=== PATIENT | male | born 1980 | race Caucasian/White ===

== ENCOUNTER → 2017-07-07 | Outpatient (CLI) | payer OTHER ==
[2017-07-07 17:19] LABS: ALBUMIN 4.4 GM/DL (3.2-5.2); ALBUMIN/GLOBULIN RATIO 1.33 (1.00-1.93); ALKALINE PHOSPHATASE 99 U/L (45-117); ALT/SGPT 52 U/L (12-78); ANION GAP 6 MEQ/L (8-16); AST/SGOT 33 U/L (7-37); BILIRUBIN,TOTAL 0.7 MG/DL (0.2-1.0); BLOOD UREA NITROGEN 8 MG/DL (7-18); CALCIUM LEVEL 9.4 MG/DL (8.5-10.1); CARBON DIOXIDE LEVEL 30 MEQ/L (21-32); CHLORIDE LEVEL 103 MEQ/L (98-107); CHOLESTEROL LEVEL 148 MG/DL (<200); CHOLESTEROL RISK RATIO 3.523 (<5); CREATININE FOR GFR 0.86 MG/DL (0.70-1.30); GLOMERULAR FILTRATION RATE > 60.0 (>60); GLUCOSE, FASTING 100 MG/DL (70-105); HDL CHOLESTEROL 42 MG/DL (>40); NON-HDL-C 106 MG/DL; POTASSIUM SERUM 4.1 MEQ/L (3.5-5.1); SODIUM LEVEL 139 MEQ/L (136-145); TOTAL PROTEIN 7.7 GM/DL (6.4-8.2); TRIGLYCERIDES LEVEL 75 MG/DL (<150)
[2017-07-07 17:58] LABS: TESTOSTERONE 644 NG/DL (241-827)
[2017-07-08 12:09] LABS: HIV 1&2 SCREEN CENTAUR NEGATIVE (NEGATIVE)
== END ==
LOC: M WUC 15:07
DX: Z00.01 Encounter for general adult medical examination with abnormal findings (principal); F11.20 Opioid dependence, uncomplicated
CPT/HCPCS: 84403

== ENCOUNTER 2021-02-05 21:04 | Inpatient (IN) | payer MEDICAID, OTHER ==
[~2021-02-05] VITALS: Ht 175.3 cm; Wt 64.0 kg
[~2021-02-05 21:04] MED LIST: NALT50TA4 PO; OLAN1TAB20 PO
[2021-02-05] MEDS ORDERED: SUBO8MIS SL (21:48)
[2021-02-05] MEDS ORDERED: ADDE20TA PO (21:48)
[2021-02-05] MEDS ORDERED: HOME MED LIST COMPLETE! XX SCH (21:50)
[2021-02-05 21:54] LABS: HEMATOCRIT 44.4 % (42.0-52.0); HEMOGLOBIN 14.2 g/dl (13.5-17.5); MEAN CORPUSCULAR HEMOGLOBIN 28.7 pg (27.0-33.0); MEAN CORPUSCULAR VOLUME 89.7 fl (80.0-96.0); PLATELET COUNT, AUTOMATED 281 10^3/uL (150-450); RED BLOOD COUNT 4.95 10^6/uL (4.30-6.10); WHITE BLOOD COUNT 8.5 10^3/uL (4.0-10.0)
[2021-02-05 22:18] LABS: AMPHETAMINES LEVEL URINE POSITIVE (NEGATIVE); BARBITURATES URINE NEGATIVE (NEGATIVE); BENZODIAZEPINES URINE NEGATIVE (NEGATIVE); CANNABINOIDS URINE NEGATIVE (NEGATIVE); COCAINE METABOLITE URINE NEGATIVE (NEGATIVE); METHADONE URINE NEGATIVE (NEGATIVE); OPIATES URINE NEGATIVE (NEGATIVE); PHENCYCLIDINE URINE NEGATIVE (NEGATIVE)
[2021-02-05 22:28] LABS: ACETAMINOPHEN LEVEL < 2.0 UG/ML (10.0-30.0); ALBUMIN 3.7 GM/DL (3.2-5.2); ALT/SGPT 30 U/L (12-78); BILIRUBIN,DIRECT 0.4 MG/DL (0.0-0.2); BILIRUBIN,TOTAL 1.3 MG/DL (0.2-1.0); BLOOD UREA NITROGEN 24 MG/DL (7-18); CALCIUM LEVEL 8.8 MG/DL (8.5-10.1); CARBON DIOXIDE LEVEL 27 MEQ/L (21-32); CHLORIDE LEVEL 105 MEQ/L (98-107); CREATININE FOR GFR 0.87 MG/DL (0.70-1.30); ETHYL ALCOHOL (ETHANOL) < 0.003 % (0.000-0.010); GLOMERULAR FILTRATION RATE > 60.0 (>60); GLUCOSE, FASTING 82 MG/DL (70-100); POTASSIUM SERUM 4.2 MEQ/L (3.5-5.1); SALICYLATE LEVEL < 1.7 MG/DL (5.0-30.0); SODIUM LEVEL 139 MEQ/L (136-145); THYROID STIMULATING HORMONE 0.323 uIU/ML (0.358-3.740)
--- NOTE | 2021-02-06 02:22 | REPVR ---
PROCEDURE INFORMATION: Exam: CT Head Without Contrast Exam date and time: 02/06/2021 1:25 AM Age: 41 years old Clinical indication: Injury or trauma; Fall; Concussion/head injury TECHNIQUE: Imaging protocol: Computed tomography of the head without contrast. Radiation optimization: All CT scans at this facility use at least one of these dose optimization techniques: automated exposure control; mA and/or kV adjustment per patient size (includes targeted exams where dose is matched to clinical indication); or iterative reconstruction. COMPARISON: CT Head without contrast 01/15/2016 10:19 AM FINDINGS: Brain: Unremarkable. No hemorrhage or acute infarction. Unremarkable white matter. No midline shift or mass effect. Cerebral ventricles: No ventriculomegaly. Paranasal sinuses: Mucosal thickening in the right maxillary sinus. Remaining sinuses are clear. Mastoid air cells: Mastoid air cells are clear. Bones/joints: Unremarkable. No acute fracture. Soft tissues: Unremarkable. IMPRESSION: No acute intracranial abnormality. Electronically signed by: Sanford Acosta On 02/06/2021 02:21:43 AM
[2021-02-06] MEDS ORDERED: ADDERALL 5 MG TAB PO ONE (08:35)
[2021-02-06] MEDS ORDERED: BUPRENORPHINE/NALOXONE 8-2MG SUBLINGUAL TABLET(SUBOXONE) SL ONE (08:35)
[2021-02-06 09:18] LABS: RSV AMPLIFICATION NEGATIVE (NEGATIVE)
[2021-02-06] MEDS ORDERED: traZODone 50 MG TAB PO PRN (10:35)
[2021-02-06] MEDS ORDERED: ACETAMINOPHEN TAB 650MG DOSE (2X325MG) PO PRN (10:35)
[2021-02-06] MEDS ORDERED: LORazepam 1 MG TAB PO PRN (10:35)
[2021-02-06] MEDS ORDERED: MOM 30ML SUSPENSION UDC PO PRN (10:35)
[2021-02-06] MEDS ORDERED: MAALOX 30 ML SUSP *UDC PO PRN (10:35)
[2021-02-06] MEDS: NICOTINE 21MG/24HR 1 EA TRANSDERMAL TD SCH (15:41)
[2021-02-06 16:30] VITALS: BP 140/84
[2021-02-07 06:45] VITALS: BP 178/110
[2021-02-07] MEDS: NICOTINE 21MG/24HR 1 EA TRANSDERMAL TD SCH (08:14)
[2021-02-07] MEDS ORDERED: BUPRENORPHINE/NALOXONE 8-2MG SUBLINGUAL TABLET(SUBOXONE) SL SCH (09:00)
[2021-02-07] MEDS: BUPRENORPHINE/NALOXONE 8-2MG SUBLINGUAL TABLET(SUBOXONE) SL SCH (09:18)
[2021-02-07] MEDS ORDERED: hydrOXYzine 50 MG TAB PO PRN (10:35)
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
[2021-02-07] MEDS: QUEtiapine FUMARATE 25 MG TAB PO SCH ×2 (11:15→16:17)
[2021-02-07] MEDS: POLYTRIM OPTH DROPS 10ML OS SCH ×4 (12:12→21:30)
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
[2021-02-07] MEDS: SODIUM CHLORIDE NASAL 0.65% SPRAY BTL (OCEAN) SCH ×2 (16:17→21:30)
[2021-02-07 16:47] VITALS: BP 140/88
[2021-02-07] MEDS: QUEtiapine FUMARATE 100 MG TAB PO SCH (21:30)
[2021-02-08] MEDS: POLYTRIM OPTH DROPS 10ML OS SCH ×6 (05:25→21:29)
[2021-02-08 05:36] VITALS: BP 144/74
[2021-02-08] MEDS: SODIUM CHLORIDE NASAL 0.65% SPRAY BTL (OCEAN) SCH ×3 (08:58→21:29)
[2021-02-08] MEDS: QUEtiapine FUMARATE 25 MG TAB PO SCH ×2 (08:58→16:09)
[2021-02-08] MEDS: NICOTINE 21MG/24HR 1 EA TRANSDERMAL TD SCH (08:59)
[2021-02-08] MEDS: BUPRENORPHINE/NALOXONE 8-2MG SUBLINGUAL TABLET(SUBOXONE) SL SCH (09:39)
--- NOTE | 2021-02-08 10:08 | MHIPNPDOC ---
[facility] Progress Note Progress Note DATE OF SERVICE: 02/08/21 The patient is cooperated with the medications including Seroquel and reports that he is feeling not as anxious and slept good. He stated that he knows what he needs to do and would like to get discharged so he can go back to [place] to his girlfriend. He denies any recent relapse and his admission tox screen is positive for amphetamine but patient claims that he has been getting Adderall from his medical doctor and apparently was prescribed. He is in good control and not showing any med seeking behavior and not demanding and in no acute distress and strongly denies any suicidal thoughts HISTORY:. VITAL SIGNS: See below. NEW TEST RESULTS:. CURRENT MEDICATIONS: See below. MENTAL STATUS EXAMINATION: Patient is a 41-year old male, who is in no acute distress. Speech: Is rational. Language skills are fair. Thought processes including: Coherent. Thought content: Denies any suicidal thoughts. Abstract reasoning, and computation:. Description of associations: Organized. Description of abnormal or psychotic thoughts: Denies any psychotic symptoms. Judgment: Fair. Insight: [ fair.. Orientation: Oriented. Recent and remote memory: No acute distress. Attention span and concentration: Fair]. Language:. Fund of knowledge:. Mood: Denies any serious depression. Affect: Slightly blunted but appropriate. DIAGNOSES: 1.. Adjustment disorder 2.. 3.. ASSESSMENT: Patient is not psychotic is maintaining good control and denies any suicidal thoughts MANAGEMENT PLAN: Supportive therapy and plan to discharge him tomorrow so he can go back to [place]. TIME SPENT: 15 minutes. Vital Signs Vital Signs Date Time Temp Pulse Resp B/P (MAP) Pulse Ox O2 Delivery O2 Flow Rate FiO2 02/08/21 05:36 97.7 67 18 144/74 (97) 99 Room Air Current Medications Current Medications Medications (Trade) Dose Ordered Sig/Krystian Route PRN Reason Start Time Stop Time Status Last Admin Dose Admin Acetaminophen (Tylenol Tab) 650 mg Q6HP PRN PO HEADACHE or MILD DISCOMFORT 02/06/21 10:35 02/07/21 06:10 Al Hydrox/Mg Hydrox/Simethicone (Mylanta) 30 ml Q4HP PRN PO HEARTBURN/INDIGESTION 02/06/21 10:35 Buprenorphine/ Naloxone (Suboxone 8/2mg) 1 tab DAILY SL 02/07/21 09:00 02/07/21 06:22 DC Buprenorphine/ Naloxone (Suboxone 8/2mg) 2 tab DAILY SL 02/07/21 09:00 02/07/21 09:18 Home Med (Home Med List Complete!) ASDIRECTED XX 02/05/21 21:50 02/05/21 21:50 DC Hydroxyzine HCl (Atarax) 50 mg Q6HP PRN PO anxiety 02/07/21 10:35 Lorazepam (Ativan) 1 mg Q6HP PRN PO ANXIETY/AGITATION 02/06/21 10:35 02/07/21 10:36 DC 02/07/21 06:09 Magnesium Hydroxide (Milk Of Magnesia) 30 ml DAILYPRN PRN PO CONSTIPATION 02/06/21 10:35 Nicotine (Nicoderm Cq 21mg) 1 patch DAILY TD 02/06/21 09:00 02/08/21 08:59 Polymyxin/ Trimethoprim Sulfate (Polytrim Ophth Drops) 1 drop 6XD OS 02/07/21 12:00 02/08/21 08:58 Quetiapine Fumarate (SEROquel) 25 mg BID@0900,1600 PO 02/07/21 09:00 02/08/21 08:58 Quetiapine Fumarate (SEROquel) 100 mg QHS PO 02/07/21 21:00 02/07/21 21:30 Sodium Chloride ([place] Nasal [place]) 2 spray TID NA 02/07/21 16:00 02/08/21 08:58 Trazodone HCl (Desyrel) 50 mg QHSP PRN PO INSOMNIA 02/06/21 10:35 Allergies Coded Allergies: Penicillins (Verified Allergy, Unknown, 02/05/21) NIMESH PETTIT M.D. Feb 08, 2021 10:08
[2021-02-08 16:34] VITALS: BP 145/94
[2021-02-08] MEDS: QUEtiapine FUMARATE 100 MG TAB PO SCH (21:29)
[2021-02-09] MEDS: POLYTRIM OPTH DROPS 10ML OS SCH ×3 (06:07→12:11)
[2021-02-09 07:39] VITALS: BP 127/90
[2021-02-09] MEDS ORDERED: QUET1TAB17 PO (08:23)
[2021-02-09] MEDS ORDERED: QUET100T2 PO (08:23)
[2021-02-09] MEDS: BUPRENORPHINE/NALOXONE 8-2MG SUBLINGUAL TABLET(SUBOXONE) SL SCH (09:17)
[2021-02-09] MEDS: NICOTINE 21MG/24HR 1 EA TRANSDERMAL TD SCH (09:17)
[2021-02-09] MEDS: QUEtiapine FUMARATE 25 MG TAB PO SCH (09:17)
[2021-02-09] MEDS: SODIUM CHLORIDE NASAL 0.65% SPRAY BTL (OCEAN) SCH (09:17)
--- NOTE | 2021-02-09 11:02 | MHDSPDOC ---
[facility] Discharge Summary Discharge Summary DATE OF ADMISSION: Feb 06, 2021 at 10:32 DATE OF DISCHARGE: February 09, 2021 DISCHARGE DIAGNOSES: 1.. Adjustment disorder with mixed emotion 2.. Polysubstance abuse REASON FOR ADMISSION: 41-year-old man with long history of polysubstance abuse admitted due to report of depression and vague suicidal thoughts. Patient apparently is living with a girlfriend in [facility] and came to [place] to see his doctor for his Suboxone prescription. For some unclear reason he was on the street reported suicidal thoughts and brought to emergency room and admitted. CONSULTANTS INVOLVED: TREATMENT AND PROGRESS ON THE UNIT : The patient was maintained on his Suboxone 2 strips a day and he was given Seroquel 25 mg twice a day and 100 mg at bedtime to help with his anxiety and sleep. Patient claims he was taking Adderall but since it has a significant abuse potential he was not restarted on that. He maintained good control denies any active suicidal thoughts and denies any hallucination or paranoia and does not show any active lethality. He is in good control and in no acute distress and asking for discharge and does not appear to be in need of any acute inpatient treatment and will be discharged per his request.. HOSPITAL COURSE: He remained in good control and did not show any bizarre aggressive or suicidal behavior. He did not show any psychotic symptoms did not have any physical complaint and in no acute physical distress and his asking to be discharged and is going to continue his treatment with his Suboxone provider. DISCHARGE ASSESSMENT: Stable not psychotic and not suicidal MENTAL STATUS EXAMINATION ON DISCHARGE: Patient is a 41-year old male, who is in no acute distress. Speech is relevant. Language skills are fair. Thought processes including: Rational. Thought content: No suicidal thoughts. Abstract reasoning, and computation:. Description of associations: Organized. Description of abnormal or psychotic thoughts: Denies any. Judgment: Fair. Insight: Fair. Orientation to oriented. Recent and remote memory: No gross impairment. Attention span and concentration:. Language:. Fund of knowledge:. Mood: Moderately anxious but denies any serious depression. Affect: Appropriate. MEDICATIONS ON DISCHARGE: -For. Seroquel 25 mg twice daily and 100 mg at bedtime for 7 days -For. -For. PLAN/FOLLOWUP ARRANGEMENTS: Continue his Suboxone provider. The amount of time spent in the coordination of care for this patient was approximately 30 minutes. ETOH/Disorder Med Rx ETOH/DRUG DISORDER RX: N/A Vital Signs/I&Os Vital Signs Date Time Temp Pulse Resp B/P (MAP) Pulse Ox O2 Delivery O2 Flow Rate FiO2 02/09/21 07:39 97.9 81 18 127/90 (102) 98 Room Air Medications Scheduled Buprenorphine HCl/Naloxone HCl (Suboxone 8 mg-2 mg Sl Film) 1 Each Film, 2 STRIP SL DAILY, (Reported) Dextroamphetamine/Amphetamine (Adderall 20 mg Tablet) 20 Mg Tablet, 20 MG PO BID, (Reported) Quetiapine Fumarate (Quetiapine Fumarate) 25 Mg Tablet, 25 MG PO BID@0900,1600 for mood for 7 Days, #14 Quetiapine Fumarate (Quetiapine Fumarate) 100 Mg Tablet, 100 MG PO QHS for mood for 7 Days, #7 Allergies Coded Allergies: Penicillins (Verified Allergy, Unknown, 02/05/21) NIMESH PETTIT M.D. Feb 09, 2021 11:02
== END 2021-02-09 12:20 | disposition home or self-care (01) | DRG 755 ==
LOC: M ED 21:04 → M ED INP 02-06 10:32 → M PSY 02-06 11:26
PROVIDERS: ADMIT Psychiatry & Neurology Psychiatry; ATTEND Psychiatry & Neurology Psychiatry
DX: F43.23 Adjustment disorder with mixed anxiety and depressed mood (principal); F11.10 Opioid abuse, uncomplicated; F17.210 Nicotine dependence, cigarettes, uncomplicated; H10.9 Unspecified conjunctivitis; Z88.0 Allergy status to penicillin; Z79.899 Other long term (current) drug therapy

== ENCOUNTER 2021-02-21 01:34 | Inpatient (IN) | payer MEDICAID, OTHER ==
[~2021-02-21] VITALS: Ht 175.3 cm; Wt 63.1 kg
[~2021-02-21 01:34] MED LIST changes: +ADDE20TA PO; +QUET100T2 PO; +QUET1TAB17 PO; +SUBO8MIS SL
[2021-02-21 04:26] LABS: RSV AMPLIFICATION NEGATIVE (NEGATIVE)
[2021-02-21] MEDS ORDERED: ACETAMINOPHEN TAB 650MG DOSE (2X325MG) PO ONE (07:20)
[2021-02-21] MEDS ORDERED: ADDERALL 5 MG TAB PO ONE (07:25)
[2021-02-21] MEDS ORDERED: QUEtiapine FUMARATE 25 MG TAB PO ONE (07:25)
[2021-02-21 08:02] LABS: APPEARANCE, URINE CLEAR (CLEAR); BACTERIA, URINE AUTO NEGATIVE (NEGATIVE); BILIRUBIN, URINE AUTO NEGATIVE (NEGATIVE); BLOOD, URINE BLOOD NEGATIVE (NEGATIVE); COLOR, URINE YELLOW (YELLOW); GLUCOSE, URINE (UA) AUTO NEGATIVE (NEGATIVE); KETONE, URINE AUTO NEGATIVE (NEGATIVE); LEUKOCYTE ESTERASE, URINE AUTO NEGATIVE (NEGATIVE); MUCUS, URINE SMALL (NEGATIVE); NITRITE, URINE AUTO NEGATIVE (NEGATIVE); PROTEIN, URINE AUTO NEGATIVE (NEGATIVE); RBC, URINE AUTO 1 /HPF (0-3); SPECIFIC GRAVITY URINE AUTO 1.025 (1.002-1.035); SQUAMOUS EPITHELIAL CELL UR AU 0 /HPF (0-6); WBC, URINE AUTO 1 /HPF (0-3)
[2021-02-21 08:09] LABS: BASO # 0.1 10^3/uL (0.0-0.2); BASO % 0.9 % (0.0-1.0); EOS # 0.2 10^3/uL (0.0-0.5); EOS % 2.4 % (0.0-3.0); HEMATOCRIT 48.1 % (42.0-52.0); HEMOGLOBIN 15.9 g/dl (13.5-17.5); LYMPH # 2.4 10^3/uL (1.5-5.0); MEAN CORPUSCULAR HEMOGLOBIN 29.4 pg (27.0-33.0); MEAN CORPUSCULAR HGB CONC 33.1 g/dl (32.0-36.5); MEAN CORPUSCULAR VOLUME 88.9 fl (80.0-96.0); MONO # 0.5 10^3/uL (0.0-0.8); MONO % 6.7 % (2.0-8.0); NEUTROPHILS # 4.7 10^3/uL (1.5-8.5); PLATELET COUNT, AUTOMATED 316 10^3/uL (150-450); RED BLOOD COUNT 5.41 10^6/uL (4.30-6.10); WHITE BLOOD COUNT 7.9 10^3/uL (4.0-10.0)
[2021-02-21] MEDS ORDERED: QUET100T2 PO ×2 (08:19→10:31)
[2021-02-21] MEDS ORDERED: QUET1TAB17 PO ×2 (08:19→10:31)
[2021-02-21 10:19] LABS: HEMATOCRIT 49.5 % (42.0-52.0); HEMOGLOBIN 15.9 g/dl (13.5-17.5); MEAN CORPUSCULAR HEMOGLOBIN 28.8 pg (27.0-33.0); MEAN CORPUSCULAR HGB CONC 32.1 g/dl (32.0-36.5); MEAN CORPUSCULAR VOLUME 89.7 fl (80.0-96.0); PLATELET COUNT, AUTOMATED 301 10^3/uL (150-450); RED BLOOD COUNT 5.52 10^6/uL (4.30-6.10); WHITE BLOOD COUNT 7.7 10^3/uL (4.0-10.0)
[2021-02-21 10:42] LABS: AMPHETAMINES LEVEL URINE POSITIVE (NEGATIVE); BARBITURATES URINE NEGATIVE (NEGATIVE); BENZODIAZEPINES URINE NEGATIVE (NEGATIVE); CANNABINOIDS URINE POSITIVE (NEGATIVE); COCAINE METABOLITE URINE NEGATIVE (NEGATIVE); METHADONE URINE NEGATIVE (NEGATIVE); OPIATES URINE NEGATIVE (NEGATIVE); PHENCYCLIDINE URINE NEGATIVE (NEGATIVE)
[2021-02-21 10:43] LABS: ACETAMINOPHEN LEVEL < 2.0 UG/ML (10.0-30.0); ALBUMIN 3.7 GM/DL (3.2-5.2); ALT/SGPT 34 U/L (12-78); BILIRUBIN,DIRECT 0.2 MG/DL (0.0-0.2); BILIRUBIN,TOTAL 0.7 MG/DL (0.2-1.0); ETHYL ALCOHOL (ETHANOL) < 0.003 % (0.000-0.010); SALICYLATE LEVEL < 1.7 MG/DL (5.0-30.0); THYROID STIMULATING HORMONE 0.445 uIU/ML (0.358-3.740); TOTAL PROTEIN 7.4 GM/DL (6.4-8.2)
[2021-02-21] MEDS ORDERED: HOME MED LIST COMPLETE! XX SCH (14:40)
[2021-02-21] MEDS ORDERED: MAALOX 30 ML SUSP *UDC PO PRN (14:50)
[2021-02-21] MEDS ORDERED: MOM 30ML SUSPENSION UDC PO PRN (14:50)
[2021-02-21] MEDS ORDERED: ACETAMINOPHEN TAB 650MG DOSE (2X325MG) PO PRN (14:50)
[2021-02-21] MEDS ORDERED: traZODone 50 MG TAB PO PRN (14:50)
[2021-02-21] MEDS: NICOTINE 21MG/24HR 1 EA TRANSDERMAL TD SCH (15:43)
[2021-02-21 15:56] VITALS: BP 160/96
[2021-02-21] MEDS: hydrOXYzine 50 MG TAB PO PRN (16:02)
[2021-02-21 17:20] VITALS: BP 190/110
[2021-02-21] MEDS: OLANZapine ORAL DISINTEGRATING TAB 5MG PO PRN (17:53)
[2021-02-21] MEDS ORDERED: BUPRENORPHINE/NALOXONE 8-2MG SUBLINGUAL TABLET(SUBOXONE) SL ONE (18:00)
[2021-02-21 19:07] VITALS: BP 140/98
[2021-02-21] MEDS: QUEtiapine FUMARATE 100 MG TAB PO SCH (22:05)
[2021-02-22 07:34] VITALS: BP 138/87
[2021-02-22] MEDS: OLANZapine ORAL DISINTEGRATING TAB 5MG PO PRN (08:01)
[2021-02-22] MEDS: NICOTINE 21MG/24HR 1 EA TRANSDERMAL TD SCH (08:02)
--- NOTE | 2021-02-22 08:49 | ECGEPIP ---
[facility] - ED Test Date: 2021-02-21 Pat Name: LURDES CANNON Department: Room: - Gender: Male Tobacco Buyer: IVAN : 1980 Requested By: EUNICE Thornton PA-C Order Number: [id number] Reading MD: Roseann Stephens Measurements Intervals [place] Rate: 67 P: 15 NM: 120 QRS: 40 QRSD: 82 T: 80 QT: 404 QTc: 426 Interpretive Statements Normal sinus rhythm Minimal voltage criteria for LVH, may be normal variant ( Sokolow-Bell ) Nonspecific T wave abnormality No prior Electronically Signed on 02-22-2021 8:49:23 EDT by Roseann Stephens
[2021-02-22] MEDS ORDERED: BUPRENORPHINE/NALOXONE 8-2MG SUBLINGUAL TABLET(SUBOXONE) SL ONE (12:00)
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
[2021-02-22] MEDS: AMPHETAMINE/DEXTROAMPHETAMINE 5 MG *ER* CAPSULE (ADDERALL XR) PO SCH (13:36)
[2021-02-22] MEDS: QUEtiapine FUMARATE 25 MG TAB PO SCH (13:37)
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
[2021-02-22 16:41] VITALS: BP 117/77
[2021-02-22] MEDS: hydroCHLOROthiazide 12.5 MG CAPSULE PO SCH (17:31)
[2021-02-22] MEDS: QUEtiapine FUMARATE 100 MG TAB PO SCH (21:15)
[2021-02-22] MEDS: BUPRENORPHINE/NALOXONE 8-2MG SUBLINGUAL TABLET(SUBOXONE) SL SCH (21:15)
[2021-02-23 05:59] VITALS: BP 137/90
[2021-02-23] MEDS: BUPRENORPHINE/NALOXONE 8-2MG SUBLINGUAL TABLET(SUBOXONE) SL SCH ×2 (08:14→20:22)
[2021-02-23] MEDS: QUEtiapine FUMARATE 25 MG TAB PO SCH ×2 (08:14→14:30)
[2021-02-23] MEDS: hydroCHLOROthiazide 12.5 MG CAPSULE PO SCH (08:14)
[2021-02-23] MEDS: AMPHETAMINE/DEXTROAMPHETAMINE 5 MG *ER* CAPSULE (ADDERALL XR) PO SCH (08:14)
[2021-02-23] MEDS: NICOTINE 21MG/24HR 1 EA TRANSDERMAL TD SCH (08:16)
[2021-02-23] MEDS: hydrOXYzine 50 MG TAB PO PRN (10:27)
[2021-02-23] MEDS: OLANZapine ORAL DISINTEGRATING TAB 5MG PO PRN ×2 (14:30→20:22)
--- NOTE | 2021-02-23 17:24 | MHIPNPDOC ---
[facility] Progress Note Progress Note DATE OF SERVICE: 02/23/21 HISTORY: Patient is a 41 -year-old , male, who presented to the ED with suicidal ideation and reports of hearing his 5-year mother talking to him. He reports that he was recently released from our hospital about 2 weeks ago, and during that admission had lost access to all of his IDs. He had reordered them but these were being sent to his ex's house so he had gone there to ask her to collect them for him. She had allowed him to stay for a night or 2, but he woke up one morning with his medications missing and his ex telling him to get out of the house. Following that he had several days without medications after which he began to hear auditory hallucinations of his mother talking to him. This distressing to the point where he had thoughts of wanting to commit suicide and so came to the hospital seeking help. He was positive for cannabis and amphetamines on admission. The amphetamines are consistent with his history of prescribed Adderall, and his report with a history of being out of medications for less than 3 days. He reports using some cannabis to try and help himself relax because he was stressed out over the situation with his ex. He also reports being on Suboxone prescribed by Dr. Marroquin. Review of I stop confirms prescriptions from Dr. Marroquin for both Suboxone and Adderall, last filled on 02/12/2021. VITAL SIGNS: See below. CURRENT MEDICATIONS: See below. MENTAL STATUS EXAMINATION: Patient is a 41 -year-old , male, who presented to the ED with suicidal ideation and reports of hearing his 5-year mother talking to him. Speech: Is fluid, conversant, normal rate, tone and volume Language skills are intact Thought processes including: linear and goal oriented Thought content: decreasing depression and anxiety. Denies suicidal/homicidal ideation, planning or intent. Abstract reasoning, and computation: fair Description of associations: denies, none observed Description of abnormal or psychotic thoughts: denies, none observed. Judgment: fair Insight: fair Orientation: alert and oriented to person, place, time and situation Recent and remote memory: intact Attention span and concentration: good Language: expansive Fund of knowledge: average Mood: Euthymic Mood Affect: reactive DIAGNOSES: Unspecified psychotic disorder, rule out schizophrenia versus PTSD with psychotic components Opioid use disorder, on replacement therapy Nicotine use disorder Cannabis use disorder ASSESSMENT: on interview today, patient recounts reason for admission. States that he was having suicidal ideation due to the frustration of having lost his IDs and medications. He denies current auditory hallucinations denied suicidal ideations and reports decreasing depression and anxiety. He was seen out in the milieu social with peers and requesting to be discharged. It appears that he has normal mentation and after his individual session tomorrow he will probably be discharged, MANAGEMENT PLAN: Continue all medications and supportive therapy. Patient is requesting discharge tomorrow. TIME SPENT: 25 minutes. Vital Signs Vital Signs Date Time Temp Pulse Resp B/P (MAP) Pulse Ox O2 Delivery O2 Flow Rate FiO2 02/23/21 05:59 97.4 90 17 137/90 (106) 02/22/21 16:41 97 Room Air Current Medications Current Medications Medications (Trade) Dose Ordered Sig/Krystian Route PRN Reason Start Time Stop Time Status Last Admin Dose Admin Acetaminophen (Tylenol Tab) 650 mg Q6HP PRN PO HEADACHE or MILD DISCOMFORT 02/21/21 14:50 Al Hydrox/Mg Hydrox/Simethicone (Mylanta) 30 ml Q4HP PRN PO HEARTBURN/INDIGESTION 02/21/21 14:50 Amphetamine/ Dextroamphetamine (Adderall Xr) 20 mg QAM PO 02/22/21 09:00 02/23/21 08:14 Buprenorphine/ Naloxone (Suboxone 8/2mg) 1 tab BID SL 02/22/21 21:00 02/23/21 08:14 Home Med (Home Med List Complete!) ASDIRECTED XX 02/21/21 14:40 02/21/21 14:49 DC Hydrochlorothiazide (Hydrodiuril) 12.5 mg DAILY PO 02/22/21 09:00 02/23/21 08:14 Hydroxyzine HCl (Atarax) 50 mg Q4HP PRN PO ANXIETY 02/21/21 14:50 02/23/21 10:27 Magnesium Hydroxide (Milk Of Magnesia) 30 ml DAILYPRN PRN PO CONSTIPATION 02/21/21 14:50 Nicotine (Nicoderm Cq 21mg) 1 patch DAILY TD 02/21/21 09:00 02/23/21 08:16 Olanzapine (ZyPREXA ZYDIS) 5 mg Q2HP PRN PO ANXIETY/AGITATION 02/21/21 14:50 02/23/21 14:30 Quetiapine Fumarate (SEROquel) 25 mg BID@0900,1300 PO 02/22/21 13:00 02/23/21 14:30 Quetiapine Fumarate (SEROquel) 100 mg QHS PO 02/21/21 21:00 02/22/21 21:15 Trazodone HCl (Desyrel) 50 mg QHSP PRN PO INSOMNIA 02/21/21 14:50 Allergies Coded Allergies: Penicillins (Verified Allergy, Unknown, 02/05/21) ARMAAN LIANG NP Feb 23, 2021 17:21
[2021-02-23] MEDS ORDERED: NICO21PAT TD (17:46)
[2021-02-23] MEDS ORDERED: HYDR12CA PO (17:46)
[2021-02-23 19:29] VITALS: BP 131/84
[2021-02-23] MEDS: QUEtiapine FUMARATE 100 MG TAB PO SCH (20:22)
[2021-02-24 06:37] VITALS: BP 153/88
[2021-02-24] MEDS: NICOTINE 21MG/24HR 1 EA TRANSDERMAL TD SCH (08:06)
[2021-02-24] MEDS: AMPHETAMINE/DEXTROAMPHETAMINE 5 MG *ER* CAPSULE (ADDERALL XR) PO SCH (08:06)
[2021-02-24] MEDS: hydroCHLOROthiazide 12.5 MG CAPSULE PO SCH (08:06)
[2021-02-24] MEDS: QUEtiapine FUMARATE 25 MG TAB PO SCH (08:06)
[2021-02-24] MEDS: BUPRENORPHINE/NALOXONE 8-2MG SUBLINGUAL TABLET(SUBOXONE) SL SCH (09:48)
--- NOTE | 2021-02-24 14:07 | MHDSPDOC ---
[facility] Discharge Summary Discharge Summary DATE OF ADMISSION: Feb 21, 2021 at 14:49 DATE OF DISCHARGE: Feb 24, 2021 at 12:20 DISCHARGE DIAGNOSES: Unspecified psychotic disorder, rule out schizophrenia versus PTSD with psychotic components Opioid use disorder, on replacement therapy Nicotine use disorder Cannabis use disorder REASON FOR ADMISSION: Patient is a 41 -year-old , male, who presented to the ED with suicidal ideation and reports of hearing his 5-year mother talking to him. He reports that he was recently released from our hospital about 2 weeks ago, and during that admission had lost access to all of his IDs. He had reordered them but these were being sent to his ex's house so he had gone there to ask her to collect them for him. She had allowed him to stay for a night or 2, but he woke up one morning with his medications missing and his ex telling him to get out of the house. Following that he had several days without medications after which he began to hear auditory hallucinations of his mother talking to him. This distressing to the point where he had thoughts of wanting to commit suicide and so came to the hospital seeking help. He was positive for cannabis and amphetamines on admission. The amphetamines are consistent with his history of prescribed Adderall, and his report with a history of being out of medications for less than 3 days. He reports using some cannabis to try and help himself relax because he was stressed out over the situation with his ex. He also reports being on Suboxone prescribed by Dr. Marroquin. Review of I stop confirms prescriptions from Dr. Marroquin for both Suboxone and Adderall, last filled on 02/12/2021. VITAL SIGNS: See below. CONSULTANTS INVOLVED: See Medical H + P by Hospitalist TREATMENT AND PROGRESS ON THE UNIT: Patient was admitted to the [facility] on a 9.39 legal status was afforded the following treatment modalities: 1) Individual Therapy 2) Group Therapy 3) Medication Management 4) Milieu Therapy 5) Safe Environment HOSPITAL COURSE: Patient was admitted to [facility] on a 9.39 legal status. Patient was restarted on his home medications. Pt found medications beneficial and tolerated them well. Mood, anxiety, and intrusive thoughts improved with treatment. Pt attended groups daily during stay, was visible on the unit and social with his peers. Pts symptoms improved with treatment. On day of discharge pt denied depression, anxiety, insomnia, SI/HI, hallucinations, delusions. Pt was discharged home with follow-up with Dr. Marroquin. He states he has mild anxiety about being able to find a place to live, and is anxious to make sure his IDs are in place because he has had difficulty being able to do things without identification. Pt felt safe for discharge and reports that he has an appointment with Dr. Marroquin tomorrow and will have his medications reinstated. DISCHARGE ASSESSMENT: In today's interview, patient is alert and oriented, pts dress is appropriate. Hygiene and grooming is well-kempt. Smiles on approach and is pleasant and engaged in the interview. Denies depression and anxiety. Denies suicidal and homicidal ideation, planning or intent. Denies and is not observed with eddie, psychotic symptoms of delusions, bizarre thinking, obsessions, paranoia, ruminations illogical thoughts, flight of ideas or having poor insight and judgement. Patient has normal mentation, declines further hospitalization on a voluntary status and meets criteria for discharge today. Patient encouraged to return to hospital if symptoms worsen or change and encouraged to call unit if he/she/they needs to speak to provider for questions regarding medications or care. MENTAL STATUS EXAMINATION ON DISCHARGE: Patient is a 41 -year-old , male, who presented to the ED with suicidal ideation and reports of hearing his 5-year mother talking to him Speech: Is fluid, conversant, normal rate, tone and volume Language skills are intact Thought processes including: linear and goal oriented Thought content: denies depression and anxiety. Denies suicidal/homicidal ideation, planning or intent. Abstract reasoning, and computation: fair Description of associations: denies, none observed Description of abnormal or psychotic thoughts: denies, none observed. Judgment: fair Insight: fair Orientation: alert and oriented to person, place, time and situation Recent and remote memory: intact Attention span and concentration: good Language: expansive Fund of knowledge: average Mood: Euthymic Mood Affect: reactive Suicide Risk Assessment: 1) Does the patient wish to be ? No 2) Since your admission, have you had any actual thought of killing yourself? No 3) Since your admission, have you been thinking about how you might do this? No 4) Since your admission, have you had these thoughts and had some intention of acting on them? No 5) Since your admission, have you started to work out or worked out the details of how to kill yourself? No 5A) Do you intent to carry out this plan? No 6) At discharged are you doing anything to kill yourself, have you started anything, or prepared to do anything with any intent to ? No 6A) How long ago did you do any of these? NA MEDICATIONS ON DISCHARGE: See Medication Reconciliation. All medications were continued, patient is agreeable to seeking Dr. Marroquin for Suboxone and Adderall. PLAN/FOLLOWUP ARRANGEMENTS: Patient is being discharged to [facility] discharged to [facility]. Patient has an appointment with follow-up provider tomorrow The amount of time spent in the coordination of care for this patient was approximately 25 minutes. ETOH/Disorder Med Rx ETOH/DRUG DISORDER RX: Given to pt at d/c (patient continued on home meds, will be seeing Dr. Marroquin tomorrow for new Rx) Vital Signs/I&Os Vital Signs Date Time Temp Pulse Resp B/P (MAP) Pulse Ox O2 Delivery O2 Flow Rate FiO2 02/24/21 06:37 98.1 86 16 153/88 (109) 100 Room Air Medications Scheduled Buprenorphine HCl/Naloxone HCl (Suboxone 8 mg-2 mg Sl Film) 1 Each Film, 2 STRIP SL DAILY, (Reported) Dextroamphetamine/Amphetamine (Adderall 20 mg Tablet) 20 Mg Tablet, 20 MG PO BID, (Reported) 2ND DOSE IN AFTERNOON Hydrochlorothiazide (Hydrochlorothiazide) 12.5 Mg Capsule, 12.5 MG PO DAILY for Blood Pressure, #7 Nicotine (Nicotine Patch) 21 Mg Patch.td24, 1 PATCH TD DAILY for Nicotine Withdrawal, #7 Quetiapine Fumarate (Quetiapine Fumarate) 25 Mg Tablet, 25 MG PO BID, (Reported) QAM, 1600 Quetiapine Fumarate (Quetiapine Fumarate) 100 Mg Tablet, 100 MG PO QHS, (Reported) Allergies Coded Allergies: Penicillins (Verified Allergy, Unknown, 02/05/21) ARMAAN LIANG NP Feb 24, 2021 14:07
== END 2021-02-24 12:20 | disposition home or self-care (01) | DRG 751 ==
LOC: M ED 01:34 → M ED INP 14:49 → M PSY 15:48
PROVIDERS: ADMIT Psychiatry & Neurology Psychiatry; ATTEND Psychiatry & Neurology Psychiatry
DX: F29 Unspecified psychosis not due to a substance or known physiological condition (principal); F11.20 Opioid dependence, uncomplicated; R45.851 Suicidal ideations; F20.9 Schizophrenia, unspecified; F10.21 Alcohol dependence, in remission; F14.21 Cocaine dependence, in remission; F15.21 Other stimulant dependence, in remission; F17.210 Nicotine dependence, cigarettes, uncomplicated; Z81.3 Family history of other psychoactive substance abuse and dependence; Z59.0 Homelessness; Z56.0 Unemployment, unspecified; Z88.0 Allergy status to penicillin; Z79.899 Other long term (current) drug therapy; F43.10 Post-traumatic stress disorder, unspecified

== ENCOUNTER 2022-01-29 16:23 | Inpatient (IN) | payer MEDICAID, OTHER ==
[~2022-01-29] VITALS: Ht 175.3 cm; Wt 68.0 kg
[~2022-01-29 16:23] MED LIST changes: +HYDR12CA PO; +NICO21PAT TD
[2022-01-29 18:29] LABS: HEMATOCRIT 38.3 % (42.0-52.0); HEMOGLOBIN 12.7 g/dl (13.5-17.5); MEAN CORPUSCULAR HGB CONC 33.2 g/dl (32.0-36.5); MEAN CORPUSCULAR VOLUME 87.4 fl (80.0-96.0); PLATELET COUNT, AUTOMATED 250 10^3/uL (150-450); RED BLOOD COUNT 4.38 10^6/uL (4.30-6.10); WHITE BLOOD COUNT 7.8 10^3/uL (4.0-10.0)
[2022-01-29 18:35] LABS: AMPHETAMINES LEVEL URINE POSITIVE (NEGATIVE); BARBITURATES URINE NEGATIVE (NEGATIVE); BENZODIAZEPINES URINE NEGATIVE (NEGATIVE); CANNABINOIDS URINE NEGATIVE (NEGATIVE); COCAINE METABOLITE URINE NEGATIVE (NEGATIVE); METHADONE URINE NEGATIVE (NEGATIVE); OPIATES URINE NEGATIVE (NEGATIVE); PHENCYCLIDINE URINE NEGATIVE (NEGATIVE)
[2022-01-29 18:48] LABS: ACETAMINOPHEN LEVEL < 2.0 UG/ML (10.0-30.0); ALBUMIN 3.5 GM/DL (3.2-5.2); ALT/SGPT 55 U/L (12-78); BILIRUBIN,DIRECT 0.2 MG/DL (0.0-0.2); BILIRUBIN,TOTAL 0.8 MG/DL (0.2-1.0); BLOOD UREA NITROGEN 16 MG/DL (7-18); CALCIUM LEVEL 8.6 MG/DL (8.5-10.1); CARBON DIOXIDE LEVEL 22 MEQ/L (21-32); CHLORIDE LEVEL 107 MEQ/L (98-107); CREATININE FOR GFR 0.85 MG/DL (0.70-1.30); ETHYL ALCOHOL (ETHANOL) < 0.003 % (0.000-0.010); GLOMERULAR FILTRATION RATE > 60.0 (>60); GLUCOSE, FASTING 103 MG/DL (70-100); POTASSIUM SERUM 3.5 MEQ/L (3.5-5.1); SALICYLATE LEVEL < 1.7 MG/DL (5.0-30.0); SODIUM LEVEL 137 MEQ/L (136-145); THYROID STIMULATING HORMONE 0.288 uIU/ML (0.358-3.740); TOTAL PROTEIN 6.5 GM/DL (6.4-8.2)
[2022-01-29 18:51] LABS: RSV AMPLIFICATION NEGATIVE (NEGATIVE)
[2022-01-29] MEDS ORDERED: OLANZapine ORAL DISINTEGRATING TAB 5MG PO ONE (19:00)
[2022-01-29] MEDS ORDERED: med rec comment (23:01)
[2022-01-29] MEDS ORDERED: ADDE30TA PO (23:01)
[2022-01-29] MEDS ORDERED: HOME MED LIST COMPLETE! XX SCH (23:05)
[2022-01-30] MEDS: BUPRENORPHINE/NALOXONE 8-2MG SUBLINGUAL TABLET(SUBOXONE) SL SCH ×2 (10:07→21:33)
[2022-01-30] MEDS: ADDERALL 5 MG TAB PO SCH ×2 (10:07→13:37)
[2022-01-31] MEDS: ADDERALL 5 MG TAB PO SCH ×3 (09:00→20:21)
[2022-01-31] MEDS: BUPRENORPHINE/NALOXONE 8-2MG SUBLINGUAL TABLET(SUBOXONE) SL SCH ×2 (09:00→20:19)
[2022-02-01] MEDS: ADDERALL 5 MG TAB PO SCH ×2 (09:00→09:03)
[2022-02-01] MEDS: BUPRENORPHINE/NALOXONE 8-2MG SUBLINGUAL TABLET(SUBOXONE) SL SCH ×3 (09:02→21:07)
[2022-02-01] MEDS ORDERED: MOM 30ML SUSPENSION UDC PO PRN (13:45)
[2022-02-01] MEDS ORDERED: IBUPROFEN 400MG TAB PO PRN (13:45)
[2022-02-01] MEDS ORDERED: MAALOX 30 ML SUSP *UDC PO PRN (13:45)
[2022-02-01] MEDS: NICOTINE 21MG/24HR 1 EA TRANSDERMAL TD SCH (14:43)
[2022-02-01 15:45] VITALS: BP 139/84
[2022-02-01] MEDS: diphenhydrAMINE 25MG CAP PO PRN (21:08)
[2022-02-02 06:30] VITALS: BP 134/84
[2022-02-02] MEDS: BUPRENORPHINE/NALOXONE 8-2MG SUBLINGUAL TABLET(SUBOXONE) SL SCH ×2 (09:11→21:33)
[2022-02-02] MEDS: NICOTINE 21MG/24HR 1 EA TRANSDERMAL TD SCH (09:12)
[2022-02-02 17:57] VITALS: BP 149/82
[2022-02-02] MEDS: diphenhydrAMINE 25MG CAP PO PRN (21:33)
[2022-02-03 06:31] VITALS: BP 156/99
[2022-02-03] MEDS: BUPRENORPHINE/NALOXONE 8-2MG SUBLINGUAL TABLET(SUBOXONE) SL SCH ×2 (08:59→21:30)
[2022-02-03] MEDS: NICOTINE 21MG/24HR 1 EA TRANSDERMAL TD SCH (09:00)
[2022-02-03] MEDS: SERTRALINE HCL 50 MG TAB PO SCH (13:28)
[2022-02-03 17:41] VITALS: BP 150/80
[2022-02-03] MEDS: OLANZapine 5 MG TAB PO PRN (21:30)
[2022-02-03] MEDS: QUEtiapine FUMARATE 50MG TAB PO SCH (21:32)
[2022-02-04 06:42] VITALS: BP 147/89
[2022-02-04 08:43] LABS: CHOLESTEROL RISK RATIO 2.094 (<5)
[2022-02-04] MEDS: BUPRENORPHINE/NALOXONE 8-2MG SUBLINGUAL TABLET(SUBOXONE) SL SCH ×2 (09:44→20:33)
[2022-02-04] MEDS: SERTRALINE HCL 50 MG TAB PO SCH (09:44)
[2022-02-04] MEDS: NICOTINE 21MG/24HR 1 EA TRANSDERMAL TD SCH (09:45)
[2022-02-04 16:40] VITALS: BP 134/85
[2022-02-04] MEDS: QUEtiapine FUMARATE 50MG TAB PO SCH (20:33)
[2022-02-05 06:35] VITALS: BP 151/88
[2022-02-05] MEDS: BUPRENORPHINE/NALOXONE 8-2MG SUBLINGUAL TABLET(SUBOXONE) SL SCH ×2 (10:11→21:15)
[2022-02-05] MEDS: NICOTINE 21MG/24HR 1 EA TRANSDERMAL TD SCH (10:11)
[2022-02-05] MEDS: busPIRone 5 MG TAB PO SCH ×2 (10:12→21:15)
[2022-02-05] MEDS: SERTRALINE HCL 25 MG TABLET PO SCH (10:14)
[2022-02-05 17:31] VITALS: BP 123/77
[2022-02-05] MEDS: QUEtiapine FUMARATE 50MG TAB PO SCH (21:15)
[2022-02-06 06:42] VITALS: BP 141/87
[2022-02-06] MEDS: BUPRENORPHINE/NALOXONE 8-2MG SUBLINGUAL TABLET(SUBOXONE) SL SCH ×2 (07:55→21:08)
[2022-02-06] MEDS: NICOTINE 21MG/24HR 1 EA TRANSDERMAL TD SCH (07:55)
[2022-02-06] MEDS: busPIRone 5 MG TAB PO SCH ×2 (07:56→21:08)
[2022-02-06] MEDS: PILL CUTTER 1 EACH XX PRN (07:56)
[2022-02-06] MEDS: SERTRALINE HCL 25 MG TABLET PO SCH (07:57)
[2022-02-06 17:00] VITALS: BP 114/75
[2022-02-06] MEDS: QUEtiapine FUMARATE 50MG TAB PO SCH (21:08)
[2022-02-07 06:50] VITALS: BP 141/84
[2022-02-07] MEDS: busPIRone 5 MG TAB PO SCH ×2 (09:23→20:49)
[2022-02-07] MEDS: PILL CUTTER 1 EACH XX PRN (09:23)
[2022-02-07] MEDS: BUPRENORPHINE/NALOXONE 8-2MG SUBLINGUAL TABLET(SUBOXONE) SL SCH ×2 (09:23→20:49)
[2022-02-07] MEDS: SERTRALINE HCL 25 MG TABLET PO SCH (09:24)
[2022-02-07] MEDS: NICOTINE 21MG/24HR 1 EA TRANSDERMAL TD SCH (09:24)
[2022-02-07 17:02] VITALS: BP 119/65
[2022-02-07] MEDS: QUEtiapine FUMARATE 50MG TAB PO SCH (20:49)
[2022-02-08 06:33] VITALS: BP 136/65
[2022-02-08] MEDS: NICOTINE 21MG/24HR 1 EA TRANSDERMAL TD SCH (09:13)
[2022-02-08] MEDS: PILL CUTTER 1 EACH XX PRN (09:13)
[2022-02-08] MEDS: BUPRENORPHINE/NALOXONE 8-2MG SUBLINGUAL TABLET(SUBOXONE) SL SCH ×2 (09:14→20:29)
[2022-02-08] MEDS: busPIRone 5 MG TAB PO SCH ×2 (09:14→20:29)
[2022-02-08] MEDS: SERTRALINE HCL 25 MG TABLET PO SCH (09:14)
[2022-02-08] MEDS: buPROPion **XL** TABLET 150MG (WELLBUTRIN XL) PO SCH (11:36)
[2022-02-08 18:23] VITALS: BP 143/85
[2022-02-08] MEDS: QUEtiapine FUMARATE 100 MG TAB PO SCH (20:29)
[2022-02-08] MEDS: OLANZapine 5 MG TAB PO PRN (20:29)
[2022-02-09 06:46] VITALS: BP 123/88
[2022-02-09] MEDS: BUPRENORPHINE/NALOXONE 8-2MG SUBLINGUAL TABLET(SUBOXONE) SL SCH ×2 (09:08→20:29)
[2022-02-09] MEDS: busPIRone 5 MG TAB PO SCH ×2 (09:08→20:29)
[2022-02-09] MEDS: buPROPion **XL** TABLET 150MG (WELLBUTRIN XL) PO SCH (09:08)
[2022-02-09] MEDS: NICOTINE 21MG/24HR 1 EA TRANSDERMAL TD SCH (09:12)
[2022-02-09] MEDS: SERTRALINE HCL 25 MG TABLET PO SCH (09:12)
[2022-02-09 18:17] VITALS: BP 112/62
[2022-02-09] MEDS: QUEtiapine FUMARATE 100 MG TAB PO SCH (20:29)
[2022-02-10 06:36] VITALS: BP 131/79
[2022-02-10] MEDS: busPIRone 5 MG TAB PO SCH ×2 (09:31→20:56)
[2022-02-10] MEDS: buPROPion **XL** TABLET 150MG (WELLBUTRIN XL) PO SCH (09:31)
[2022-02-10] MEDS: BUPRENORPHINE/NALOXONE 8-2MG SUBLINGUAL TABLET(SUBOXONE) SL SCH ×2 (09:31→20:56)
[2022-02-10] MEDS: SERTRALINE HCL 25 MG TABLET PO SCH (09:32)
[2022-02-10] MEDS: NICOTINE 21MG/24HR 1 EA TRANSDERMAL TD SCH (09:32)
[2022-02-10 18:30] VITALS: BP 128/63
[2022-02-10] MEDS: QUEtiapine FUMARATE 100 MG TAB PO SCH (20:56)
[2022-02-11 07:07] VITALS: BP 142/66
[2022-02-11] MEDS: buPROPion **XL** TABLET 150MG (WELLBUTRIN XL) PO SCH (09:13)
[2022-02-11] MEDS: BUPRENORPHINE/NALOXONE 8-2MG SUBLINGUAL TABLET(SUBOXONE) SL SCH ×2 (09:14→20:09)
[2022-02-11] MEDS: NICOTINE 21MG/24HR 1 EA TRANSDERMAL TD SCH (09:14)
[2022-02-11] MEDS: SERTRALINE HCL 25 MG TABLET PO SCH (09:14)
[2022-02-11] MEDS: busPIRone 5 MG TAB PO SCH ×2 (09:15→20:09)
[2022-02-11 18:00] VITALS: BP 135/87
[2022-02-11] MEDS: QUEtiapine FUMARATE 100 MG TAB PO SCH (20:09)
[2022-02-12 06:59] VITALS: BP 130/88
[2022-02-12] MEDS: busPIRone 5 MG TAB PO SCH ×2 (09:41→21:13)
[2022-02-12] MEDS: buPROPion **XL** TABLET 150MG (WELLBUTRIN XL) PO SCH (09:41)
[2022-02-12] MEDS: BUPRENORPHINE/NALOXONE 8-2MG SUBLINGUAL TABLET(SUBOXONE) SL SCH ×2 (09:41→21:14)
[2022-02-12] MEDS: NICOTINE 21MG/24HR 1 EA TRANSDERMAL TD SCH (09:41)
[2022-02-12] MEDS: SERTRALINE HCL 25 MG TABLET PO SCH (09:41)
[2022-02-12 18:19] VITALS: BP 132/79
[2022-02-12] MEDS: QUEtiapine FUMARATE 100 MG TAB PO SCH (21:14)
[2022-02-13 06:24] VITALS: BP 118/73
[2022-02-13] MEDS: NICOTINE 21MG/24HR 1 EA TRANSDERMAL TD SCH (08:45)
[2022-02-13] MEDS: busPIRone 5 MG TAB PO SCH ×2 (08:46→21:01)
[2022-02-13] MEDS: buPROPion **XL** TABLET 150MG (WELLBUTRIN XL) PO SCH (08:46)
[2022-02-13] MEDS: SERTRALINE HCL 25 MG TABLET PO SCH (08:46)
[2022-02-13] MEDS: BUPRENORPHINE/NALOXONE 8-2MG SUBLINGUAL TABLET(SUBOXONE) SL SCH ×2 (08:46→21:00)
[2022-02-13 18:24] VITALS: BP 116/79
[2022-02-13] MEDS: QUEtiapine FUMARATE 100 MG TAB PO SCH (21:00)
[2022-02-14 06:54] VITALS: BP 112/76
[2022-02-14] MEDS: SERTRALINE HCL 25 MG TABLET PO SCH (09:26)
[2022-02-14] MEDS: buPROPion **XL** TABLET 150MG (WELLBUTRIN XL) PO SCH (09:26)
[2022-02-14] MEDS: BUPRENORPHINE/NALOXONE 8-2MG SUBLINGUAL TABLET(SUBOXONE) SL SCH ×2 (09:26→20:54)
[2022-02-14] MEDS: busPIRone 5 MG TAB PO SCH ×2 (09:26→20:54)
[2022-02-14] MEDS: NICOTINE 21MG/24HR 1 EA TRANSDERMAL TD SCH (09:26)
[2022-02-14 18:17] VITALS: BP 117/78
[2022-02-14] MEDS: QUEtiapine FUMARATE 100 MG TAB PO SCH (20:55)
[2022-02-15 06:36] VITALS: BP 118/75
[2022-02-15] MEDS: PILL CUTTER 1 EACH XX PRN (09:36)
[2022-02-15] MEDS: NICOTINE 21MG/24HR 1 EA TRANSDERMAL TD SCH (09:36)
[2022-02-15] MEDS: busPIRone 5 MG TAB PO SCH ×2 (09:36→21:07)
[2022-02-15] MEDS: SERTRALINE HCL 25 MG TABLET PO SCH (09:37)
[2022-02-15] MEDS: buPROPion **XL** TABLET 150MG (WELLBUTRIN XL) PO SCH (09:37)
[2022-02-15] MEDS: BUPRENORPHINE/NALOXONE 8-2MG SUBLINGUAL TABLET(SUBOXONE) SL SCH ×2 (09:37→21:08)
[2022-02-15 16:22] VITALS: BP 118/84
[2022-02-15] MEDS: QUEtiapine FUMARATE 100 MG TAB PO SCH (21:08)
[2022-02-16 06:21] VITALS: BP 130/92
[2022-02-16] MEDS: busPIRone 5 MG TAB PO SCH (08:39)
[2022-02-16] MEDS: SERTRALINE HCL 25 MG TABLET PO SCH (08:39)
[2022-02-16] MEDS: buPROPion **XL** TABLET 150MG (WELLBUTRIN XL) PO SCH (08:39)
[2022-02-16] MEDS: PILL CUTTER 1 EACH XX PRN (08:40)
[2022-02-16] MEDS: NICOTINE 21MG/24HR 1 EA TRANSDERMAL TD SCH (08:40)
[2022-02-16] MEDS: BUPRENORPHINE/NALOXONE 8-2MG SUBLINGUAL TABLET(SUBOXONE) SL SCH (09:58)
[2022-02-16] MEDS ORDERED: BUPR150T12 PO (10:07)
[2022-02-16] MEDS ORDERED: BUSP5TA PO (10:07)
[2022-02-16] MEDS ORDERED: QUET100T2 PO (10:07)
[2022-02-16] MEDS ORDERED: SERT25TA21 PO (10:07)
== END 2022-02-16 10:36 | disposition home or self-care (01) | DRG 751 ==
LOC: M ED 16:23 → M ED INP 02-01 13:45 → M PSY 02-01 14:53
PROVIDERS: ADMIT Psychiatry & Neurology Psychiatry; ATTEND Psychiatry & Neurology Psychiatry
DX: F33.1 Major depressive disorder, recurrent, moderate (principal); F16.94 Hallucinogen use, unspecified with hallucinogen-induced mood disorder; F11.94 Opioid use, unspecified with opioid-induced mood disorder; F17.210 Nicotine dependence, cigarettes, uncomplicated; F41.1 Generalized anxiety disorder; R45.851 Suicidal ideations; F90.9 Attention-deficit hyperactivity disorder, unspecified type; Z56.0 Unemployment, unspecified; R74.01 Elevation of levels of liver transaminase levels; E07.9 Disorder of thyroid, unspecified; Z88.0 Allergy status to penicillin; Z79.899 Other long term (current) drug therapy; Z63.8 Other specified problems related to primary support group; Z20.822 Contact with and (suspected) exposure to COVID-19; Z91.51 Personal history of suicidal behavior; Z59.00 Homelessness unspecified

== ENCOUNTER 2022-07-03 14:51 | Emergency (ER) | payer MEDICAID, OTHER ==
[~2022-07-03] VITALS: Ht 175.3 cm; Wt 75.3 kg
[~2022-07-03 14:51] MED LIST changes: +ADDE30TA PO; +BUPR150T12 PO; +BUSP5TA PO; +SERT25TA21 PO; +med rec comment
[2022-07-03 15:36] VITALS: BP 170/100
== END 2022-07-03 16:47 | disposition home or self-care (01) ==
LOC: M ED 14:51
DX: S00.83XA Contusion of other part of head, initial encounter (principal); S01.81XA Laceration without foreign body of other part of head, initial encounter; R55 Syncope and collapse; Y92.149 Unspecified place in prison as the place of occurrence of the external cause; I10 Essential (primary) hypertension; F19.10 Other psychoactive substance abuse, uncomplicated; Z79.899 Other long term (current) drug therapy; Z88.0 Allergy status to penicillin

== ENCOUNTER 2024-05-25 11:38 | Inpatient (IN) | payer MEDICAID, OTHER, SELFPAY ==
[~2024-05-25] VITALS: Ht 175.3 cm; Wt 66.8 kg
[2024-05-25 12:17] LABS: VENOUS BASE EXCESS -5.9 (-2.0-2.0); VENOUS HCO3 20.7 MMOL/L (23.0-27.0); VENOUS O2 SATURATION 35.6 % (60.0-80.0); VENOUS PARTIAL PRESSURE CO2 44.2 mmHg (38.0-50.0); VENOUS PARTIAL PRESSURE O2 24.8 mmHg (30.0-50.0); VENOUS PH 7.288 UNITS (7.330-7.430); VENOUS STANDARD HCO3 18.2 MMOL/L
[2024-05-25] MEDS ORDERED: DEXTROSE 50% 50ML SYRINGE As Ordered ONE (12:18)
[2024-05-25] MEDS ORDERED: ISOVUE-370 76% 100ML VIAL As Ordered ONE (12:23)
[2024-05-25 12:26] LABS: HEMOGLOBIN 16.7 g/dl (13.5-17.5); MEAN CORPUSCULAR HEMOGLOBIN 28.4 pg (27.0-33.0); MEAN CORPUSCULAR HGB CONC 33.4 g/dl (32.0-36.5); MEAN CORPUSCULAR VOLUME 85.2 fl (80.0-96.0); PLATELET COUNT, AUTOMATED 382 10^3/uL (150-450); RED BLOOD COUNT 5.87 10^6/uL (4.30-6.10)
[2024-05-25] MEDS: DEXTROSE 50% 50ML SYRINGE IV STA (12:30)
[2024-05-25] MEDS: NS 1,000 ML IV ONE (12:30)
[2024-05-25] MEDS: MORPHINE 4 MG/ML 1ML VIAL IV ONE (12:30)
[2024-05-25 12:33] LABS: WHITE BLOOD COUNT 46.9 10^3/uL (4.0-10.0)
[2024-05-25] MEDS ORDERED: METH-1177 PO (12:35)
[2024-05-25 12:44] LABS: ALBUMIN 2.2 G/DL (3.2-5.2); ALKALINE PHOSPHATASE 100 U/L (40-129); ALT/SGPT 85 U/L (7.0-40); AST/SGOT 196 U/L (<34); BILIRUBIN,DIRECT 0.5 MG/DL (<0.4); BILIRUBIN,TOTAL 0.8 MG/DL (0.3-1.2); BLOOD UREA NITROGEN 61 MG/DL (9-23); CALCIUM LEVEL 9.3 MG/DL (8.5-10.1); CARBON DIOXIDE LEVEL 21 MMOL/L (20-31); CHLORIDE LEVEL 89 MMOL/L (98-107); CREATININE FOR GFR 1.58 MG/DL (0.70-1.30); GLOMERULAR FILTRATION RATE 50.7 (>60); GLUCOSE, FASTING 42 MG/DL (60-100); POTASSIUM SERUM 4.3 MMOL/L (3.5-5.1); SODIUM LEVEL 127 MMOL/L (136-145); TOTAL PROTEIN 6.2 G/DL (5.7-8.2)
[2024-05-25 12:47] LABS: INR 1.37; PARTIAL THROMBOPLASTIN TIME 36.1 SECONDS (24.8-34.2); PROTHROMBIN TIME 17.1 SECONDS (12.5-14.5)
[2024-05-25 12:50] LABS: PROCALCITONIN 16.33 ng/ml
[2024-05-25 12:51] LABS: AMYLASE < 20 U/L (30-118)
[2024-05-25 13:09] LABS: C REACTIVE PROTEIN QUANTITATIV > 30.40 MG/DL (<1.0)
[2024-05-25 13:14] LABS: ATYPICAL LYMPH 1 % (0-5); LYMPHOCYTES 3 % (16-44); METAMYELOCYTES 5 % (0-0); MONOCYTES 2 % (0-5); MYELOCYTES 8 % (0-0); NEUTROPHILS 63 % (28-66)
[2024-05-25 13:17] LABS: ANISOCYTOSIS 1+; TOXIC GRANULATION 1+
[2024-05-25 13:19] LABS: PLATELET ESTIMATE NORMAL (NORMAL)
[2024-05-25] MEDS: NS 790 ML in IV 1 EA IV ONE (13:29)
[2024-05-25] MEDS: VANCOMYCIN/WATER FOR INJ (PEG) 1,250 MG in IV 1 EA IV ONE (13:29)
[2024-05-25 14:08] LABS: APPEARANCE, URINE HAZY (CLEAR); BACTERIA, URINE AUTO NEGATIVE (NEGATIVE); BILIRUBIN, URINE AUTO NEGATIVE (NEGATIVE); BLOOD, URINE BLOOD 2+ (NEGATIVE); COLOR, URINE AMBER (YELLOW); GLUCOSE, URINE (UA) AUTO NEGATIVE (NEGATIVE); KETONE, URINE AUTO TRACE mg/dL (NEGATIVE); LEUKOCYTE ESTERASE, URINE AUTO NEGATIVE (NEGATIVE); MUCUS, URINE SMALL (NEGATIVE); NITRITE, URINE AUTO NEGATIVE (NEGATIVE); PROTEIN, URINE AUTO 1+ mg/dL (NEGATIVE); RBC, URINE AUTO 1 /HPF (0-3); SPECIFIC GRAVITY URINE AUTO 1.027 (1.002-1.035); SQUAMOUS EPITHELIAL CELL UR AU 0 /HPF (0-6); WBC, URINE AUTO 2 /HPF (0-3)
[2024-05-25] MEDS: MORPHINE 4 MG/ML 1ML VIAL IV PRN (15:11)
[2024-05-25] MEDS ORDERED: CLINDAMYCIN 600 MG in IV 1 EA IV SCH ×2 (15:50→15:55)
[2024-05-25] MEDS ORDERED: MOM 30ML SUSPENSION UDC PO PRN (16:00)
[2024-05-25] MEDS: CEFEPIME HCL 2 GM in DEXTROSE 5% (D5W) ADV/MINI-BAG 50 ML IV SCH (16:16)
[2024-05-25] MEDS: NS 1,000 ML IV SCH (16:16)
[2024-05-25] MEDS: CLINDAMYCIN 900 MG in IV 1 EA IV SCH (16:38)
[2024-05-25] MEDS ORDERED: MEPERIDINE 25 MG/ML 1ML VIAL IV PRN ×2 (16:55→19:25)
[2024-05-25] MEDS ORDERED: diphenhydrAMINE 50MG/ML VIAL IV PRN ×2 (16:55→19:25)
[2024-05-25] MEDS ORDERED: METOCLOPRAMIDE INJ 10MG/2ML VIAL IV PRN (16:55)
[2024-05-25] MEDS ORDERED: HYDROMORPHONE HCL 0.5 MG/ 0.5 ML SYRINGE IV PRN ×2 (16:55→19:25)
[2024-05-25 17:03] LABS: ANTI-STREPTOLYSIN O QUANT 86.1 IU/ML (<195)
[2024-05-25] MEDS ORDERED: ONDANSETRON 4MG 2ML VIAL As Ordered ONE (17:18)
[2024-05-25] MEDS ORDERED: propofoL 200 MG/20 ML VIAL As Ordered ONE (17:18)
[2024-05-25] MEDS ORDERED: ROCURONIUM BROMIDE 50MG/5ML VIAL As Ordered ONE (17:19)
[2024-05-25] MEDS ORDERED: SUGAMMADEX SODIUM 500 MG/5 ML VIAL (BRIDION) As Ordered ONE (17:19)
[2024-05-25] MEDS ORDERED: ACETAMINOPHEN 1000MG/100ML IV BAG As Ordered ONE (17:20)
[2024-05-25] MEDS ORDERED: LIDOCAINE 2% 100MG/5ML SDV (FOR ANES.) As Ordered ONE (17:21)
[2024-05-25] MEDS ORDERED: MIDAZOLAM INJ 2MG/2ML VIAL As Ordered ONE (17:23)
[2024-05-25] MEDS ORDERED: fentaNYL 100 MCG/2 ML INJECTION As Ordered ONE (17:23)
[2024-05-25] MEDS ORDERED: METOPROLOL 5 MG/5 ML VIAL As Ordered ONE (17:54)
[2024-05-25] MEDS ORDERED: MEROPENEM INJ 2 GM in NS 100 ML IV SCH (18:15)
[2024-05-25] MEDS ORDERED: BOOSTRIX VACCINE (TETANUS/DIPHTH/ACEL. PERTUSSIS) 0.5ML SYR IM ONE (18:15)
[2024-05-25] MEDS: ceFAZolin 2 GM/D5W 50 ML IV BAG As Ordered ONE (18:20)
[2024-05-25] MEDS: TRANEXAMIC ACID 100 MG/ML 10ML VIAL As Ordered ONE (18:22)
[2024-05-25 18:41] LABS: CPK CREATINE PHOSPHOKINASE 396 U/L (46-171)
[2024-05-25] MEDS ORDERED: HYDROmorphone HCL 2MG/ML 1ML VIAL As Ordered ONE (19:13)
[2024-05-25] MEDS ORDERED: fentaNYL 100 MCG/2 ML INJECTION IV PRN (19:25)
[2024-05-25] MEDS ORDERED: DEXTROSE 50% 50ML SYRINGE IV PRN (19:55)
[2024-05-25] MEDS ORDERED: GLUCAGON INJ 1MG VIAL SC PRN (19:55)
[2024-05-25] MEDS ORDERED: GLUCOSE 4 GM CHEW PO PRN (19:55)
[2024-05-25 21:33] VITALS: BP 157/79; TEMP 98.3; O2SAT 99
[2024-05-25] MEDS: D5W/0.9% SODIUM CHLORIDE 1,000 ML IV SCH (22:00)
[2024-05-25] MEDS: LR 1,000 ML IV SCH (22:06)
[2024-05-25 22:14] VITALS: BP 160/83; TEMP 98.2; O2SAT 100
[2024-05-25 22:30] VITALS: O2SAT 100
[2024-05-25 22:47] LABS: BLOOD UREA NITROGEN 58 MG/DL (9-23); CARBON DIOXIDE LEVEL 17 MMOL/L (20-31); CHLORIDE LEVEL 100 MMOL/L (98-107); CREATININE FOR GFR 1.34 MG/DL (0.70-1.30); GLOMERULAR FILTRATION RATE > 60.0 (>60); GLUCOSE, FASTING 108 MG/DL (60-100); MAGNESIUM LEVEL 2.1 MG/DL (1.8-2.4); POTASSIUM SERUM 4.8 MMOL/L (3.5-5.1); SODIUM LEVEL 128 MMOL/L (136-145)
[2024-05-25 23:00] VITALS: O2SAT 99
[2024-05-25 23:10] VITALS: O2SAT 99
[2024-05-25 23:14] VITALS: BP 166/77; TEMP 98.2; O2SAT 100
[2024-05-26] VITALS (30 sets, daily range): BP systolic 152–172; BP diastolic 75–100; TEMP 97.8–98.4; O2SAT 95–100
[2024-05-26] MEDS: MEROPENEM INJ 1 GM in IV 1 EA IV SCH ×2 (00:21→01:08)
[2024-05-26 03:09] LABS: BLOOD UREA NITROGEN 55 MG/DL (9-23); CALCIUM LEVEL 7.3 MG/DL (8.5-10.1); CARBON DIOXIDE LEVEL 21 MMOL/L (20-31); CHLORIDE LEVEL 100 MMOL/L (98-107); CREATININE FOR GFR 1.31 MG/DL (0.70-1.30); GLOMERULAR FILTRATION RATE > 60.0 (>60); GLUCOSE, FASTING 154 MG/DL (60-100); POTASSIUM SERUM 3.9 MMOL/L (3.5-5.1); SODIUM LEVEL 129 MMOL/L (136-145)
[2024-05-26] MEDS: NS 1,000 ML IV SCH (06:45)
[2024-05-26 07:40] LABS: EOS % 0.1 % (0.0-3.0); HEMATOCRIT 33.9 % (42.0-52.0); LYMPH # 1.2 10^3/uL (1.5-5.0); LYMPH % 3.6 % (24.0-44.0); MEAN CORPUSCULAR HGB CONC 34.5 g/dl (32.0-36.5); MEAN CORPUSCULAR VOLUME 83.9 fl (80.0-96.0); MONO # 0.9 10^3/uL (0.0-0.8); MONO % 2.5 % (2.0-8.0); NEUTROPHILS # 28.9 10^3/uL (1.5-8.5); NEUTROPHILS % 86.6 % (36.0-66.0); RED BLOOD COUNT 4.04 10^6/uL (4.30-6.10)
[2024-05-26 07:43] LABS: WHITE BLOOD COUNT 33.4 10^3/uL (4.0-10.0)
[2024-05-26 07:44] LABS: HEMOGLOBIN 11.7 g/dl (13.5-17.5)
[2024-05-26 07:45] LABS: PLATELET COUNT, AUTOMATED 188 10^3/uL (150-450)
[2024-05-26] MEDS ORDERED: VANCOMYCIN 1,250 MG/250 ML IV BAG IV SCH (08:00)
[2024-05-26 08:02] LABS: VANCOMYCIN RANDOM 8.7 UG/ML
[2024-05-26 08:03] LABS: BLOOD UREA NITROGEN 51 MG/DL (9-23); CALCIUM LEVEL 7.2 MG/DL (8.5-10.1); CARBON DIOXIDE LEVEL 22 MMOL/L (20-31); CHLORIDE LEVEL 101 MMOL/L (98-107); CREATININE FOR GFR 1.23 MG/DL (0.70-1.30); GLOMERULAR FILTRATION RATE > 60.0 (>60); GLUCOSE, FASTING 148 MG/DL (60-100); POTASSIUM SERUM 3.9 MMOL/L (3.5-5.1); SODIUM LEVEL 130 MMOL/L (136-145)
[2024-05-26] MEDS: LACTOBACILLUS ACIDOPHILUS CAP (BACID) PO SCH (08:50)
[2024-05-26] MEDS: VANCOMYCIN 1,000MG/200 ML IV BAG IV SCH (08:51)
[2024-05-26] MEDS: METHADONE 10MG TAB PO SCH (10:31)
[2024-05-26] MEDS: ACETAMINOPHEN 325 MG TAB PO PRN (11:28)
[2024-05-26] MEDS: MORPHINE 4 MG/ML 1ML VIAL IV PRN (11:55)
[2024-05-26 12:39] LABS: HIV 1&2 SCREEN NEGATIVE (NEGATIVE)
[2024-05-26] MEDS: BOOSTRIX VACCINE (TETANUS/DIPHTH/ACEL. PERTUSSIS) 0.5ML SYR IM ONE (13:51)
[2024-05-26] MEDS: METHADONE 10MG TAB PO ONE (14:21)
[2024-05-26] MEDS: ACETAMINOPHEN *IV* 1,000 MG in IV 1 EA IV ONE (18:03)
[2024-05-26 18:15] LABS: ERYTHROCYTE SEDIMENTATION RATE 39 mm/hr (0-15)
[2024-05-27] VITALS (33 sets, daily range): BP systolic 151–166; BP diastolic 85–94; TEMP 96.9–99.1; O2SAT 95–99
[2024-05-27 07:28] LABS: BASO # 0.2 10^3/uL (0.0-0.2); BASO % 0.5 % (0.0-1.0); EOS # 0.1 10^3/uL (0.0-0.5); EOS % 0.4 % (0.0-3.0); HEMATOCRIT 29.7 % (42.0-52.0); HEMOGLOBIN 10.2 g/dl (13.5-17.5); LYMPH # 1.8 10^3/uL (1.5-5.0); LYMPH % 5.4 % (24.0-44.0); MEAN CORPUSCULAR HEMOGLOBIN 29.3 pg (27.0-33.0); MEAN CORPUSCULAR HGB CONC 34.3 g/dl (32.0-36.5); MEAN CORPUSCULAR VOLUME 85.3 fl (80.0-96.0); MONO # 0.9 10^3/uL (0.0-0.8); MONO % 2.9 % (2.0-8.0); NEUTROPHILS # 25.9 10^3/uL (1.5-8.5); NEUTROPHILS % 79.5 % (36.0-66.0); PLATELET COUNT, AUTOMATED 155 10^3/uL (150-450); RED BLOOD COUNT 3.48 10^6/uL (4.30-6.10)
[2024-05-27 07:37] LABS: WHITE BLOOD COUNT 32.5 10^3/uL (4.0-10.0)
[2024-05-27 07:53] LABS: BLOOD UREA NITROGEN 36 MG/DL (9-23); CALCIUM LEVEL 7.3 MG/DL (8.5-10.1); CARBON DIOXIDE LEVEL 23 MMOL/L (20-31); CHLORIDE LEVEL 104 MMOL/L (98-107); CREATININE FOR GFR 1.09 MG/DL (0.70-1.30); GLOMERULAR FILTRATION RATE > 60.0 (>60); GLUCOSE, FASTING 81 MG/DL (60-100); MAGNESIUM LEVEL 1.9 MG/DL (1.8-2.4); POTASSIUM SERUM 3.7 MMOL/L (3.5-5.1); SODIUM LEVEL 134 MMOL/L (136-145)
[2024-05-27] MEDS ORDERED: VANCOMYCIN 1,000MG/200 ML IV BAG IV SCH (08:00)
[2024-05-27] MEDS ORDERED: diphenhydrAMINE 50MG/ML VIAL IV PRN (08:55)
[2024-05-27] MEDS ORDERED: ONDANSETRON 4MG 2ML VIAL IV PRN (08:55)
[2024-05-27] MEDS ORDERED: oxyCODONE 5MG TAB PO PRN (08:55)
[2024-05-27] MEDS ORDERED: MEPERIDINE 25 MG/ML 1ML VIAL IV PRN (08:55)
[2024-05-27] MEDS ORDERED: METOCLOPRAMIDE INJ 10MG/2ML VIAL IV PRN (08:55)
[2024-05-27] MEDS ORDERED: KETAMINE HCL 200MG/20ML VIAL As Ordered ONE (09:48)
[2024-05-27] MEDS: fentaNYL 100 MCG/2 ML INJECTION IV PRN (10:52)
[2024-05-27] MEDS: HYDROMORPHONE HCL 0.5 MG/ 0.5 ML SYRINGE IV PRN (11:12)
[2024-05-27] MEDS: METHADONE 10MG TAB PO ONE (11:21)
[2024-05-27] MEDS: IMMUNE GLOBULIN 10% 80 GM in IV 1 EA IV ONE (14:24)
[2024-05-27] MEDS: IMMUNE GLOBULIN 10% 120 GM in IV 1 EA IV ONE (14:24)
[2024-05-27] MEDS: cefTRIAXone SOD 2 GM in DEXTROSE 5% (D5W) ADV/MINI-BAG 50 ML IV SCH (15:46)
[2024-05-28] VITALS (11 sets, daily range): BP systolic 155–168; BP diastolic 69–98; TEMP 97.5–98.4; O2SAT 94–97
[2024-05-28 06:10] LABS: HEMATOCRIT 31.8 % (42.0-52.0); HEMOGLOBIN 10.5 g/dl (13.5-17.5); MEAN CORPUSCULAR VOLUME 87.8 fl (80.0-96.0); PLATELET COUNT, AUTOMATED 112 10^3/uL (150-450); RED BLOOD COUNT 3.62 10^6/uL (4.30-6.10); WHITE BLOOD COUNT 21.2 10^3/uL (4.0-10.0)
[2024-05-28 06:15] LABS: BLOOD UREA NITROGEN 21 MG/DL (9-23); CALCIUM LEVEL 6.6 MG/DL (8.5-10.1); CARBON DIOXIDE LEVEL 24 MMOL/L (20-31); CHLORIDE LEVEL 103 MMOL/L (98-107); CREATININE FOR GFR 0.89 MG/DL (0.70-1.30); GLOMERULAR FILTRATION RATE > 60.0 (>60); GLUCOSE, FASTING 123 MG/DL (60-100); MAGNESIUM LEVEL 1.3 MG/DL (1.8-2.4); POTASSIUM SERUM 3.3 MMOL/L (3.5-5.1); SODIUM LEVEL 133 MMOL/L (136-145)
[2024-05-28 06:48] LABS: ATYPICAL LYMPH 2 % (0-5); LYMPHOCYTES 8 % (16-44); MONOCYTES 4 % (0-5)
[2024-05-28 06:49] LABS: NEUTROPHILS 48 % (28-66)
[2024-05-28 06:50] LABS: ANISOCYTOSIS 1+; PLATELET ESTIMATE DECREASED (NORMAL)
[2024-05-28] MEDS ORDERED: HOME MED LIST COMPLETE! XX SCH (08:20)
[2024-05-28] MEDS: METHADONE 10MG TAB PO SCH (08:55)
[2024-05-28] MEDS: MAG SULF 1GM/100ML (MAG RUN) 1 GM in IV 1 EA IV SCH (10:46)
[2024-05-28] MEDS ORDERED: IMMUNE GLOBULIN 10% 40 GM in IV 1 EA IV SCH (12:00)
[2024-05-28] MEDS ORDERED: IMMUNE GLOBULIN 10% 20 GM in IV 1 EA IV SCH (13:00)
[2024-05-28] MEDS: KCL 10MEQ/100ML SWI (KRUN) 10 MEQ in IV 1 EA IV SCH (14:58)
[2024-05-28] MEDS: IMMUNE GLOBULIN 10% 20 GM in IV 1 EA IV SCH (17:23)
[2024-05-29] VITALS (10 sets, daily range): BP systolic 148–206; BP diastolic 84–142; TEMP 97.2–99; O2SAT 96–100
[2024-05-29] MEDS: SIMETHICONE 80MG CHEW TAB PO PRN (01:18)
[2024-05-29 06:37] LABS: HEMATOCRIT 33.6 % (42.0-52.0); HEMOGLOBIN 11.2 g/dl (13.5-17.5); MEAN CORPUSCULAR HEMOGLOBIN 28.7 pg (27.0-33.0); MEAN CORPUSCULAR HGB CONC 33.3 g/dl (32.0-36.5); MEAN CORPUSCULAR VOLUME 86.2 fl (80.0-96.0); PLATELET COUNT, AUTOMATED 101 10^3/uL (150-450)
[2024-05-29 06:42] LABS: WHITE BLOOD COUNT 30.8 10^3/uL (4.0-10.0)
[2024-05-29 07:13] LABS: BLOOD UREA NITROGEN 11 MG/DL (9-23); CALCIUM LEVEL 6.3 MG/DL (8.5-10.1); CARBON DIOXIDE LEVEL 29 MMOL/L (20-31); CHLORIDE LEVEL 98 MMOL/L (98-107); CREATININE FOR GFR 0.62 MG/DL (0.70-1.30); GLOMERULAR FILTRATION RATE > 60.0 (>60); GLUCOSE, FASTING 103 MG/DL (60-100); MAGNESIUM LEVEL 1.3 MG/DL (1.8-2.4); POTASSIUM SERUM 3.2 MMOL/L (3.5-5.1); SODIUM LEVEL 131 MMOL/L (136-145)
[2024-05-29 07:45] LABS: EOSINOPHILS 1 % (0-3); LYMPHOCYTES 5 % (16-44); MONOCYTES 5 % (0-5); NEUTROPHILS 88 % (28-66)
[2024-05-29 07:47] LABS: ANISOCYTOSIS 1+
[2024-05-29 07:53] LABS: PLATELET ESTIMATE DECREASED (NORMAL)
[2024-05-29 11:22] LABS: BLOOD UREA NITROGEN 9 MG/DL (9-23); CALCIUM LEVEL 6.7 MG/DL (8.5-10.1); CARBON DIOXIDE LEVEL 25 MMOL/L (20-31); CHLORIDE LEVEL 102 MMOL/L (98-107); CREATININE FOR GFR 0.66 MG/DL (0.70-1.30); GLOMERULAR FILTRATION RATE > 60.0 (>60); GLUCOSE, FASTING 157 MG/DL (60-100); HEPATITIS B SURFACE ANTIGEN NEGATIVE (NEGATIVE); MAGNESIUM LEVEL 1.4 MG/DL (1.8-2.4); POTASSIUM SERUM 2.9 MMOL/L (3.5-5.1); SODIUM LEVEL 132 MMOL/L (136-145)
[2024-05-29 11:47] LABS: HEPATITIS C VIRUS ABY INDEX > 11.00 INDEX (<0.8)
[2024-05-29] MEDS: MAG SULF 1GM/100ML (MAG RUN) 1 GM in IV 1 EA IV SCH (11:57)
[2024-05-29] MEDS ORDERED: POTASSIUM CHLORIDE 10MEQ SR TABLET PO SCH (13:00)
[2024-05-29] MEDS ORDERED: CLINDAMYCIN 600MG/50ML PREMIX BAG As Ordered ONE (13:17)
[2024-05-29] MEDS ORDERED: GLYCOPYRROLATE INJ 0.2 MG/ML 2 ML VIAL As Ordered ONE (15:01)
[2024-05-29] MEDS: fentaNYL 100 MCG/2 ML INJECTION IV PRN (16:22)
[2024-05-29] MEDS: ONDANSETRON 4MG 2ML VIAL IV PRN (16:34)
[2024-05-29] MEDS: oxyCODONE 5MG TAB PO PRN (16:35)
[2024-05-29] MEDS: MORPHINE 2 MG/ML 1ML VIAL IV PRN (16:51)
[2024-05-29] MEDS: POTASSIUM CHLORIDE 10MEQ SR TABLET PO SCH (19:05)
[2024-05-30] VITALS (14 sets, daily range): BP systolic 132–188; BP diastolic 66–107; TEMP 97.2–99.5; O2SAT 94–99
[2024-05-30 06:41] LABS: BASO # 0.1 10^3/uL (0.0-0.2); BASO % 0.6 % (0.0-1.0); EOS # 0.2 10^3/uL (0.0-0.5); EOS % 0.8 % (0.0-3.0); HEMATOCRIT 32.8 % (42.0-52.0); HEMOGLOBIN 10.7 g/dl (13.5-17.5); LYMPH # 2.1 10^3/uL (1.5-5.0); LYMPH % 9.5 % (24.0-44.0); MEAN CORPUSCULAR HEMOGLOBIN 28.6 pg (27.0-33.0); MEAN CORPUSCULAR HGB CONC 32.6 g/dl (32.0-36.5); MEAN CORPUSCULAR VOLUME 87.7 fl (80.0-96.0); MONO # 1.2 10^3/uL (0.0-0.8); MONO % 5.6 % (2.0-8.0); NEUTROPHILS # 15.4 10^3/uL (1.5-8.5); NEUTROPHILS % 70.9 % (36.0-66.0); PLATELET COUNT, AUTOMATED 166 10^3/uL (150-450); RED BLOOD COUNT 3.74 10^6/uL (4.30-6.10); WHITE BLOOD COUNT 21.7 10^3/uL (4.0-10.0)
[2024-05-30 07:03] LABS: BLOOD UREA NITROGEN 12 MG/DL (9-23); CALCIUM LEVEL 6.8 MG/DL (8.5-10.1); CARBON DIOXIDE LEVEL 30 MMOL/L (20-31); CHLORIDE LEVEL 103 MMOL/L (98-107); GLOMERULAR FILTRATION RATE > 60.0 (>60); GLUCOSE, FASTING 128 MG/DL (60-100); MAGNESIUM LEVEL 1.5 MG/DL (1.8-2.4); POTASSIUM SERUM 3.4 MMOL/L (3.5-5.1); SODIUM LEVEL 133 MMOL/L (136-145)
[2024-05-30] MEDS: POTASSIUM CHLORIDE 10MEQ SR TABLET PO SCH (10:38)
[2024-05-30] MEDS ORDERED: SODIUM CHLORIDE 0.9% INJ 10 ML SYR IV PRN (11:00)
[2024-05-30] MEDS: MAG SULF 1GM/100ML (MAG RUN) 1 GM in IV 1 EA IV SCH (11:31)
[2024-05-30] MEDS: MAALOX 30 ML SUSP *UDC PO PRN (12:53)
[2024-05-30 15:21] LABS: HEPATITIS B CORE ANTIBODY IGG REACTIVE (NON-REACTIVE); HEPATITIS B SURF AB QUANT 504 mIU/mL (> OR = 10)
[2024-05-30] MEDS: SODIUM CHLORIDE 0.9% INJ 10 ML SYR IV SCH (17:12)
[2024-05-30] MEDS ORDERED: FENTANYL REMOVAL DOCUMENTATION MISC XX SCH (20:00)
[2024-05-30] MEDS ORDERED: fentaNYL 25 MCG/HR PATCH TOP ONE (20:00)
[2024-05-30] MEDS ORDERED: PILL CUTTER 1 EACH XX PRN (21:00)
[2024-05-30] MEDS: HYDROmorphone 2 MG TAB PO ONE (21:12)
[2024-05-30 22:48] LABS: HCV RNA log10 6.22 Log IU/mL (NOT DETECTED)
[2024-05-31] VITALS (11 sets, daily range): BP systolic 108–198; BP diastolic 58–100; TEMP 96.7–98.6; O2SAT 94–98
[2024-05-31] MEDS: fentaNYL 25 MCG/HR PATCH TOP ONE (02:29)
[2024-05-31 08:00] LABS: BASO # 0.1 10^3/uL (0.0-0.2); BASO % 0.3 % (0.0-1.0); EOS # 0.1 10^3/uL (0.0-0.5); EOS % 0.4 % (0.0-3.0); HEMATOCRIT 35.4 % (42.0-52.0); HEMOGLOBIN 11.7 g/dl (13.5-17.5); LYMPH # 1.3 10^3/uL (1.5-5.0); LYMPH % 5.1 % (24.0-44.0); MEAN CORPUSCULAR HEMOGLOBIN 29.2 pg (27.0-33.0); MEAN CORPUSCULAR HGB CONC 33.1 g/dl (32.0-36.5); MEAN CORPUSCULAR VOLUME 88.3 fl (80.0-96.0); MONO % 3.8 % (2.0-8.0); NEUTROPHILS # 21.4 10^3/uL (1.5-8.5); PLATELET COUNT, AUTOMATED 246 10^3/uL (150-450); RED BLOOD COUNT 4.01 10^6/uL (4.30-6.10); WHITE BLOOD COUNT 25.2 10^3/uL (4.0-10.0)
[2024-05-31 08:40] LABS: BLOOD UREA NITROGEN 8 MG/DL (9-23); CALCIUM LEVEL 7.2 MG/DL (8.5-10.1); CARBON DIOXIDE LEVEL 30 MMOL/L (20-31); CHLORIDE LEVEL 101 MMOL/L (98-107); CREATININE FOR GFR 0.57 MG/DL (0.70-1.30); GLOMERULAR FILTRATION RATE > 60.0 (>60); GLUCOSE, FASTING 80 MG/DL (60-100); MAGNESIUM LEVEL 1.4 MG/DL (1.8-2.4); POTASSIUM SERUM 5.3 MMOL/L (3.5-5.1); SODIUM LEVEL 132 MMOL/L (136-145)
[2024-05-31] MEDS: CLINDAMYCIN 900MG/50ML PREMIX BAG As Ordered ONE (09:00)
[2024-05-31] MEDS ORDERED: ALBUTEROL SULFATE 2.5MG/0.5ML INH NEB SOLN INH ONE (09:40)
[2024-05-31] MEDS ORDERED: METOCLOPRAMIDE INJ 10MG/2ML VIAL IV PRN (09:40)
[2024-05-31] MEDS ORDERED: ONDANSETRON 4MG 2ML VIAL IV PRN (09:40)
[2024-05-31] MEDS ORDERED: MEPERIDINE 25 MG/ML 1ML VIAL IV PRN (09:40)
[2024-05-31] MEDS ORDERED: oxyCODONE 5MG TAB PO PRN (09:40)
[2024-05-31] MEDS: HYDROMORPHONE HCL 0.5 MG/ 0.5 ML SYRINGE IV PRN (10:02)
[2024-05-31] MEDS: fentaNYL 100 MCG/2 ML INJECTION IV PRN (10:26)
[2024-05-31] MEDS: LABETALOL 100MG/20ML VIAL IV PRN (10:50)
[2024-05-31] MEDS ORDERED: NALOXONE INJ 0.4MG/1ML VIAL IV PRN (14:45)
[2024-05-31] MEDS: KETOROLAC 30 MG/ML 1ML VIAL IV PRN (15:12)
[2024-05-31] MEDS: MAG SULF 1GM/100ML (MAG RUN) 1 GM in IV 1 EA IV SCH (16:47)
[2024-05-31] MEDS: zolPIDEM TARTRATE 5 MG TAB PO SCH (20:08)
[2024-06-01] VITALS (18 sets, daily range): BP systolic 120–169; BP diastolic 80–92; TEMP 97.1–98.8; O2SAT 95–100
[2024-06-01 06:45] LABS: HEMATOCRIT 31.4 % (42.0-52.0); HEMOGLOBIN 10.2 g/dl (13.5-17.5); MEAN CORPUSCULAR HEMOGLOBIN 28.6 pg (27.0-33.0); MEAN CORPUSCULAR HGB CONC 32.5 g/dl (32.0-36.5); PLATELET COUNT, AUTOMATED 270 10^3/uL (150-450); RED BLOOD COUNT 3.57 10^6/uL (4.30-6.10); WHITE BLOOD COUNT 15.5 10^3/uL (4.0-10.0)
[2024-06-01 07:06] LABS: BLOOD UREA NITROGEN 20 MG/DL (9-23); CALCIUM LEVEL 7.2 MG/DL (8.5-10.1); CARBON DIOXIDE LEVEL 29 MMOL/L (20-31); CHLORIDE LEVEL 103 MMOL/L (98-107); CREATININE FOR GFR 0.57 MG/DL (0.70-1.30); GLOMERULAR FILTRATION RATE > 60.0 (>60); GLUCOSE, FASTING 109 MG/DL (60-100); MAGNESIUM LEVEL 1.7 MG/DL (1.8-2.4); POTASSIUM SERUM 3.9 MMOL/L (3.5-5.1); SODIUM LEVEL 132 MMOL/L (136-145)
[2024-06-01 07:44] LABS: LYMPHOCYTES 11 % (16-44); METAMYELOCYTES 3 % (0-0); MONOCYTES 4 % (0-5); MYELOCYTES 3 % (0-0); NEUTROPHILS 79 % (28-66); PLATELET ESTIMATE NORMAL (NORMAL)
[2024-06-01 07:45] LABS: GIANT PLATELETS 1+
[2024-06-01] MEDS: MAG SULF 1GM/100ML (MAG RUN) 1 GM in IV 1 EA IV SCH (09:26)
[2024-06-01] MEDS: GABAPENTIN 100 MG CAP PO SCH (09:28)
[2024-06-01] MEDS: KETOROLAC 30 MG/ML 1ML VIAL IV PRN (12:24)
[2024-06-01] MEDS: zolPIDEM TARTRATE 5 MG TAB PO SCH (21:34)
[2024-06-02] VITALS (17 sets, daily range): BP systolic 130–148; BP diastolic 80–90; TEMP 98–98.8; O2SAT 91–98
[2024-06-02 06:18] LABS: BASO % 0.2 % (0.0-1.0); EOS # 0.1 10^3/uL (0.0-0.5); EOS % 0.7 % (0.0-3.0); HEMATOCRIT 29.7 % (42.0-52.0); HEMOGLOBIN 9.7 g/dl (13.5-17.5); LYMPH # 1.3 10^3/uL (1.5-5.0); LYMPH % 8.7 % (24.0-44.0); MEAN CORPUSCULAR HEMOGLOBIN 29.3 pg (27.0-33.0); MEAN CORPUSCULAR HGB CONC 32.7 g/dl (32.0-36.5); MEAN CORPUSCULAR VOLUME 89.7 fl (80.0-96.0); MONO # 0.9 10^3/uL (0.0-0.8); MONO % 6.2 % (2.0-8.0); NEUTROPHILS # 12.3 10^3/uL (1.5-8.5); NEUTROPHILS % 81.8 % (36.0-66.0); PLATELET COUNT, AUTOMATED 293 10^3/uL (150-450); RED BLOOD COUNT 3.31 10^6/uL (4.30-6.10)
[2024-06-02 06:46] LABS: BLOOD UREA NITROGEN 20 MG/DL (9-23); CALCIUM LEVEL 7.5 MG/DL (8.5-10.1); CARBON DIOXIDE LEVEL 28 MMOL/L (20-31); CHLORIDE LEVEL 103 MMOL/L (98-107); CREATININE FOR GFR 0.58 MG/DL (0.70-1.30); GLOMERULAR FILTRATION RATE > 60.0 (>60); GLUCOSE, FASTING 84 MG/DL (60-100); MAGNESIUM LEVEL 1.4 MG/DL (1.8-2.4); POTASSIUM SERUM 4.4 MMOL/L (3.5-5.1); SODIUM LEVEL 134 MMOL/L (136-145)
[2024-06-02] MEDS: GABAPENTIN 300 MG CAP PO SCH (16:03)
[2024-06-02] MEDS: QUEtiapine FUMARATE 50MG TAB PO SCH (21:56)
[2024-06-03] VITALS (12 sets, daily range): BP systolic 134–156; BP diastolic 84–94; TEMP 97.6–99.3; O2SAT 93–98
[2024-06-03] MEDS: FENTANYL REMOVAL DOCUMENTATION MISC XX ONE (03:25)
[2024-06-03 05:49] LABS: BASO % 0.3 % (0.0-1.0); EOS # 0.1 10^3/uL (0.0-0.5); EOS % 0.8 % (0.0-3.0); HEMATOCRIT 28.1 % (42.0-52.0); LYMPH # 1.2 10^3/uL (1.5-5.0); LYMPH % 12.4 % (24.0-44.0); MEAN CORPUSCULAR HEMOGLOBIN 29.2 pg (27.0-33.0); MEAN CORPUSCULAR VOLUME 91.2 fl (80.0-96.0); MONO # 0.8 10^3/uL (0.0-0.8); MONO % 8.6 % (2.0-8.0); NEUTROPHILS # 7.1 10^3/uL (1.5-8.5); NEUTROPHILS % 75.3 % (36.0-66.0); PLATELET COUNT, AUTOMATED 309 10^3/uL (150-450); RED BLOOD COUNT 3.08 10^6/uL (4.30-6.10); WHITE BLOOD COUNT 9.4 10^3/uL (4.0-10.0)
[2024-06-03 06:15] LABS: BLOOD UREA NITROGEN 16 MG/DL (9-23); CALCIUM LEVEL 7.7 MG/DL (8.5-10.1); CARBON DIOXIDE LEVEL 33 MMOL/L (20-31); CHLORIDE LEVEL 103 MMOL/L (98-107); GLOMERULAR FILTRATION RATE > 60.0 (>60); GLUCOSE, FASTING 85 MG/DL (60-100); MAGNESIUM LEVEL 1.6 MG/DL (1.8-2.4); PHOSPHORUS LEVEL 4.2 MG/DL (2.5-4.9); POTASSIUM SERUM 4.5 MMOL/L (3.5-5.1); SODIUM LEVEL 136 MMOL/L (136-145)
[2024-06-03] MEDS: QUEtiapine FUMARATE 100 MG TAB PO SCH (20:20)
[2024-06-04] VITALS (10 sets, daily range): BP systolic 136–184; BP diastolic 64–90; TEMP 97–98.2; O2SAT 97–99
[2024-06-04 06:36] LABS: HEMATOCRIT 29.6 % (42.0-52.0); HEMOGLOBIN 9.1 g/dl (13.5-17.5); MEAN CORPUSCULAR HEMOGLOBIN 28.3 pg (27.0-33.0); MEAN CORPUSCULAR HGB CONC 30.7 g/dl (32.0-36.5); MEAN CORPUSCULAR VOLUME 91.9 fl (80.0-96.0); PLATELET COUNT, AUTOMATED 321 10^3/uL (150-450); RED BLOOD COUNT 3.22 10^6/uL (4.30-6.10); WHITE BLOOD COUNT 7.4 10^3/uL (4.0-10.0)
[2024-06-04 07:08] LABS: BLOOD UREA NITROGEN 18 MG/DL (9-23); CALCIUM LEVEL 8.4 MG/DL (8.5-10.1); CARBON DIOXIDE LEVEL 33 MMOL/L (20-31); CHLORIDE LEVEL 103 MMOL/L (98-107); CREATININE FOR GFR 0.53 MG/DL (0.70-1.30); GLOMERULAR FILTRATION RATE > 60.0 (>60); GLUCOSE, FASTING 90 MG/DL (60-100); MAGNESIUM LEVEL 1.8 MG/DL (1.8-2.4); SODIUM LEVEL 138 MMOL/L (136-145)
[2024-06-04 07:13] LABS: PROCALCITONIN 0.22 ng/ml
[2024-06-04 13:30] LABS: OSMOLALITY SERUM 296 MOSM/KG (275-295)
[2024-06-04] MEDS: fentaNYL 100 MCG/2 ML INJECTION IV PRN (14:35)
[2024-06-04] MEDS: oxyCODONE 5MG TAB PO PRN (14:58)
[2024-06-04] MEDS: HYDROMORPHONE HCL 0.5 MG/ 0.5 ML SYRINGE IV PRN (15:01)
[2024-06-04 17:39] LABS: BASO % 0.2 % (0.0-1.0); EOS % 0.1 % (0.0-3.0); HEMATOCRIT 29.6 % (42.0-52.0); HEMOGLOBIN 9.3 g/dl (13.5-17.5); LYMPH # 0.5 10^3/uL (1.5-5.0); LYMPH % 4.1 % (24.0-44.0); MEAN CORPUSCULAR HEMOGLOBIN 28.8 pg (27.0-33.0); MEAN CORPUSCULAR HGB CONC 31.4 g/dl (32.0-36.5); MEAN CORPUSCULAR VOLUME 91.6 fl (80.0-96.0); MONO # 0.4 10^3/uL (0.0-0.8); MONO % 3.4 % (2.0-8.0); NEUTROPHILS # 10.9 10^3/uL (1.5-8.5); PLATELET COUNT, AUTOMATED 407 10^3/uL (150-450); RED BLOOD COUNT 3.23 10^6/uL (4.30-6.10); WHITE BLOOD COUNT 11.9 10^3/uL (4.0-10.0)
[2024-06-04] MEDS: MORPHINE 10 MG/ML 1ML VIAL IV ONE (18:54)
== END 2024-06-04 23:17 | disposition short-term general hospital (02) | DRG 710 ==
LOC: M ED 11:38 → EDBD 11:38 → M ED INP 15:57 → M PCU 21:37
PROVIDERS: ADMIT Student in an Organized Health Care Education/Training Program; ATTEND Student in an Organized Health Care Education/Training Program
PROC: 0JBD0ZZ Excision of Right Upper Arm Subcutaneous Tissue and Fascia, Open Approach (ICD-10-PCS; 2024-05-25)
PROC: 0KB70ZZ Excision of Right Upper Arm Muscle, Open Approach (ICD-10-PCS; principal; 2024-05-25 17:00)
PROC: 3C1ZX8Z Irrigation of Indwelling Device using Irrigating Substance, External Approach (ICD-10-PCS; 2024-05-27)
PROC: 0XH Anatomical Regions, Upper Extremities, Insertion (ICD-10-PCS; 2024-05-27)
PROC: 0HBBXZZ Excision of Right Upper Arm Skin, External Approach (ICD-10-PCS; 2024-05-29)
PROC: 0HBFXZZ Excision of Right Hand Skin, External Approach (ICD-10-PCS; 2024-05-29)
PROC: 0HBDXZZ Excision of Right Lower Arm Skin, External Approach (ICD-10-PCS; 2024-05-29)
PROC: 3C1ZX8Z Irrigation of Indwelling Device using Irrigating Substance, External Approach (ICD-10-PCS; 2024-05-31)
PROC: 0KD90ZZ Extraction of Right Lower Arm and Wrist Muscle, Open Approach (ICD-10-PCS; 2024-06-04)
PROC: 0KD70ZZ Extraction of Right Upper Arm Muscle, Open Approach (ICD-10-PCS; 2024-06-04)
PROC: 30233N1 Transfusion of Nonautologous Red Blood Cells into Peripheral Vein, Percutaneous Approach (ICD-10-PCS; 2024-06-04)
DX: A41.9 Sepsis, unspecified organism (principal); M72.6 Necrotizing fasciitis; E87.20 Acidosis, unspecified; N17.9 Acute kidney failure, unspecified; E87.1 Hypo-osmolality and hyponatremia; E16.1 Other hypoglycemia; I10 Essential (primary) hypertension; F32.A Depression, unspecified; F41.9 Anxiety disorder, unspecified; F17.200 Nicotine dependence, unspecified, uncomplicated; Z59.02 Unsheltered homelessness; Z56.0 Unemployment, unspecified; R65.20 Severe sepsis without septic shock; B95.0 Streptococcus, group A, as the cause of diseases classified elsewhere; E83.42 Hypomagnesemia; B18.2 Chronic viral hepatitis C; E87.6 Hypokalemia; L03.113 Cellulitis of right upper limb; G47.00 Insomnia, unspecified; R35.89 Other polyuria; Z79.899 Other long term (current) drug therapy; Z88.0 Allergy status to penicillin

== ENCOUNTER 2024-08-02 18:24 | Emergency (ER) | payer MEDICAID ==
[~2024-08-02] VITALS: Ht 175.3 cm; Wt 72.5 kg
[~2024-08-02 18:24] MED LIST changes: +METH-1177 PO
[2024-08-02 18:30] VITALS: BP 140/85; TEMP 99.2; O2SAT 100
[2024-08-02] MEDS: ACETAMINOPHEN 325 MG TAB PO ONE (21:24)
[2024-08-02] MEDS: BACITRACIN OINTMENT 30GM TUBE TOP ONE (21:25)
[2024-08-02] MEDS ORDERED: BACI500O8 TOP (22:36)
[2024-08-03] MEDS ORDERED: BACITRACIN OINTMENT 30GM TUBE TOP ONE (09:00)
== END 2024-08-02 22:57 | disposition home or self-care (01) ==
LOC: M ED 18:24
DX: M79.601 Pain in right arm (principal); Z79.2 Long term (current) use of antibiotics; Z79.891 Long term (current) use of opiate analgesic

== ENCOUNTER 2024-08-11 18:08 | Emergency (ER) | payer MEDICAID ==
[~2024-08-11] VITALS: Ht 175.3 cm; Wt 68.3 kg
[~2024-08-11 18:08] MED LIST changes: +BACI500O8 TOP
[2024-08-11 19:13] VITALS: BP 161/97; TEMP 98.6; O2SAT 98
== END 2024-08-11 20:35 | disposition home or self-care (01) ==
LOC: M ED 18:08
DX: Z48.00 Encounter for change or removal of nonsurgical wound dressing (principal); F17.210 Nicotine dependence, cigarettes, uncomplicated; Z88.8 Allergy status to other drugs, medicaments and biological substances; Z79.899 Other long term (current) drug therapy

== ENCOUNTER 2024-08-12 08:15 | Inpatient (IN) | payer BC, MEDICAID ==
[~2024-08-12] VITALS: Ht 175.3 cm; Wt 68.0 kg
[2024-08-12] MEDS: NICOTINE 14 MG/24 HR TRANSDERMAL TD SCH (09:00)
[2024-08-12 09:23] LABS: HEMATOCRIT 34.2 % (42.0-52.0); HEMOGLOBIN 10.1 g/dl (13.5-17.5); MEAN CORPUSCULAR HEMOGLOBIN 22.5 pg (27.0-33.0); MEAN CORPUSCULAR HGB CONC 29.5 g/dl (32.0-36.5); MEAN CORPUSCULAR VOLUME 76.3 fl (80.0-96.0); PLATELET COUNT, AUTOMATED 355 10^3/uL (150-450); RED BLOOD COUNT 4.48 10^6/uL (4.30-6.10); WHITE BLOOD COUNT 3.8 10^3/uL (4.0-10.0)
[2024-08-12 09:43] LABS: ETHYL ALCOHOL (ETHANOL) 0.003 % (0.000-0.010)
[2024-08-12 09:45] LABS: ALBUMIN 2.8 G/DL (3.2-5.2); ALKALINE PHOSPHATASE 96 U/L (40-129); ALT/SGPT 55 U/L (7.0-40); AST/SGOT 40 U/L (<34); BILIRUBIN,DIRECT 0.2 MG/DL (<0.4); BILIRUBIN,TOTAL 0.6 MG/DL (0.3-1.2); BLOOD UREA NITROGEN 8 MG/DL (9-23); CALCIUM LEVEL 8.8 MG/DL (8.5-10.1); CARBON DIOXIDE LEVEL 25 MMOL/L (20-31); CHLORIDE LEVEL 103 MMOL/L (98-107); CREATININE FOR GFR 0.63 MG/DL (0.70-1.30); GLOMERULAR FILTRATION RATE > 60.0 (>60); GLUCOSE, FASTING 106 MG/DL (60-100); POTASSIUM SERUM 3.8 MMOL/L (3.5-5.1); SALICYLATE LEVEL < 3.0 MG/DL (<30); SODIUM LEVEL 139 MMOL/L (136-145); TOTAL PROTEIN 6.8 G/DL (5.7-8.2)
[2024-08-12 09:47] LABS: THYROID STIMULATING HORMONE 0.802 uIU/ML (0.55-4.78)
[2024-08-12 10:50] LABS: BARBITURATES URINE NEGATIVE (NEGATIVE); BENZODIAZEPINES URINE NEGATIVE (NEGATIVE); COCAINE METABOLITE URINE NEGATIVE (NEGATIVE); OPIATES URINE NEGATIVE (NEGATIVE); PHENCYCLIDINE URINE NEGATIVE (NEGATIVE)
[2024-08-12 10:53] LABS: AMPHETAMINES LEVEL URINE POSITIVE (NEGATIVE); CANNABINOIDS URINE POSITIVE (NEGATIVE); METHADONE URINE POSITIVE (NEGATIVE)
[2024-08-12] MEDS ORDERED: MED REC IN PROGRESS XX SCH (13:05)
[2024-08-12] MEDS ORDERED: MAALOX 30 ML SUSP *UDC PO PRN (16:00)
[2024-08-12] MEDS ORDERED: MOM 30ML SUSPENSION UDC PO PRN (16:00)
[2024-08-12] MEDS ORDERED: diphenhydrAMINE 25MG CAP PO PRN (16:00)
[2024-08-12] MEDS ORDERED: traZODone 50 MG TAB PO PRN (16:00)
[2024-08-12 16:25] VITALS: BP 181/91; TEMP 97.4; O2SAT 98
[2024-08-12] MEDS: LORazepam 1 MG TAB PO PRN (18:16)
[2024-08-12] MEDS: ACETAMINOPHEN 325 MG TAB PO PRN (18:16)
[2024-08-12] MEDS: METHADONE 10MG TAB PO ONE (19:42)
[2024-08-12] MEDS: DOXYCYCLINE HYCLATE 100MG TABLET PO SCH (20:43)
[2024-08-12 21:19] LABS: C REACTIVE PROTEIN QUANTITATIV 6.62 MG/DL (<1.0)
[2024-08-12 21:27] LABS: PROCALCITONIN 1.61 ng/ml
[2024-08-12] MEDS: KETOROLAC TROMETHAMINE 10 MG TAB PO ONE (21:29)
[2024-08-13] MEDS: KETOROLAC TROMETHAMINE 10 MG TAB PO PRN (06:07)
[2024-08-13 06:56] VITALS: BP 171/90; TEMP 98.7; O2SAT 98
[2024-08-13] MEDS ORDERED: HOME MED LIST COMPLETE! XX SCH (08:10)
[2024-08-13] MEDS ORDERED: METHADONE 10MG TAB PO SCH ×2 (09:00→16:00)
[2024-08-13] MEDS: METHADONE 10MG TAB PO SCH (10:25)
[2024-08-13] MEDS: amLODIPine 5 MG TAB PO SCH (13:01)
[2024-08-13 16:10] LABS: FREE T3 2.9 PG/ML (2.3-4.2); FREE T4 1.21 NG/DL (0.89-1.76)
[2024-08-13 17:55] LABS: HEMOGLOBIN A1c 4.7 % (4.0-6.0)
[2024-08-13] MEDS: MIRTAZAPINE 7.5MG PER 1/2 TABLET PO SCH (20:11)
[2024-08-14 06:41] VITALS: BP 151/81; TEMP 98.2; O2SAT 97
[2024-08-14 10:05] VITALS: BP 150/88
[2024-08-14] MEDS: LORazepam 2 MG TAB PO ONE (11:24)
[2024-08-14] MEDS: PERCOCET 5MG/325MG TAB PO ONE (12:43)
[2024-08-14 18:00] VITALS: BP 130/60; TEMP 97.7; O2SAT 100
[2024-08-14] MEDS: SERTRALINE HCL 50 MG TAB PO SCH (21:02)
[2024-08-15 06:40] VITALS: BP 152/87; TEMP 97.5; O2SAT 100
[2024-08-15 09:51] VITALS: BP 176/104
[2024-08-15] MEDS: IBUPROFEN 400MG TAB PO PRN (09:54)
[2024-08-15 11:40] VITALS: BP 148/92
[2024-08-15] MEDS: AUGMENTIN 875 MG TAB PO SCH (12:43)
[2024-08-15 16:25] VITALS: BP 132/78; TEMP 97.7; O2SAT 98
[2024-08-16 06:36] VITALS: BP 144/94; TEMP 97; O2SAT 96
[2024-08-16 17:41] VITALS: BP 138/80; TEMP 97.2; O2SAT 98
[2024-08-17 06:17] VITALS: BP 141/80; TEMP 98.3; O2SAT 98
[2024-08-17 16:55] VITALS: BP 118/77; TEMP 97.3; O2SAT 100
[2024-08-18 06:40] VITALS: BP 116/89; TEMP 97.1; O2SAT 100
[2024-08-18 15:43] VITALS: BP 122/78; TEMP 97.2; O2SAT 100
[2024-08-19 06:40] VITALS: BP 142/86; TEMP 97.4; O2SAT 99
[2024-08-19 16:21] VITALS: BP 130/84; TEMP 97.9; O2SAT 98
[2024-08-20 10:31] VITALS: BP 126/79
[2024-08-20] MEDS: LORazepam 1 MG TAB PO PRN (10:35)
[2024-08-20 11:26] VITALS: BP 126/79; TEMP 97.9; O2SAT 98
[2024-08-20 16:40] VITALS: BP 123/82; TEMP 98.3; O2SAT 99
[2024-08-20] MEDS: QUEtiapine FUMARATE 100 MG TAB PO SCH (20:23)
[2024-08-21 06:27] VITALS: BP 139/90; TEMP 98.6; O2SAT 98
[2024-08-21 16:00] VITALS: BP 123/78; TEMP 97.6; O2SAT 99
[2024-08-21] MEDS: SERTRALINE 100 MG TAB PO SCH (20:21)
[2024-08-21] MEDS: OLANZapine ORAL DISINTEGRATING TAB 5MG PO PRN (20:22)
[2024-08-22 06:38] VITALS: BP 128/78; TEMP 96.6; O2SAT 98
[2024-08-22 15:36] VITALS: BP 113/72; TEMP 98.4; O2SAT 100
[2024-08-23 06:34] VITALS: BP 125/75; TEMP 98; O2SAT 99
[2024-08-23 16:56] VITALS: BP 131/71; TEMP 97; O2SAT 98
[2024-08-24] MEDS ORDERED: AMOX875T2 PO (05:39)
[2024-08-24] MEDS ORDERED: QUET100T2 PO (05:39)
[2024-08-24] MEDS ORDERED: ZOLO100T PO (05:39)
[2024-08-24] MEDS ORDERED: AMLO1TAB24 PO (05:39)
[2024-08-24 06:50] VITALS: BP 123/71; TEMP 97.2; O2SAT 99
[2024-08-24 08:40] VITALS: BP 122/80
[2024-08-24 09:09] VITALS: BP 122/80; TEMP 97.2; O2SAT 99
== END 2024-08-24 11:35 | disposition home or self-care (01) | DRG 751 ==
LOC: M ED 08:15 → M ED INP 15:58 → M PSY 16:45
PROVIDERS: ADMIT Internal Medicine; ATTEND Psychiatry & Neurology Psychiatry
DX: F33.2 Major depressive disorder, recurrent severe without psychotic features (principal); L03.115 Cellulitis of right lower limb; R45.851 Suicidal ideations; F41.1 Generalized anxiety disorder; F90.9 Attention-deficit hyperactivity disorder, unspecified type; B95.61 Methicillin susceptible Staphylococcus aureus infection as the cause of diseases classified elsewhere; Z79.899 Other long term (current) drug therapy; Z88.8 Allergy status to other drugs, medicaments and biological substances; Z59.02 Unsheltered homelessness; Z91.52 Personal history of nonsuicidal self-harm; Z91.51 Personal history of suicidal behavior

== ENCOUNTER 2025-03-03 15:33 | Inpatient (IN) | payer BC, OTHER ==
[~2025-03-03] VITALS: Ht 175.3 cm; Wt 68.2 kg
[~2025-03-03 15:33] MED LIST changes: +AMLO1TAB24 PO; +AMOX875T2 PO; +HYDR12.510 PO; -HYDR12CA PO; +ZOLO100T PO
[2025-03-03 16:58] LABS: BARBITURATES URINE NEGATIVE (NEGATIVE); COCAINE METABOLITE URINE NEGATIVE (NEGATIVE)
[2025-03-03 16:59] LABS: BENZODIAZEPINES URINE NEGATIVE (NEGATIVE); OPIATES URINE NEGATIVE (NEGATIVE); PHENCYCLIDINE URINE NEGATIVE (NEGATIVE)
[2025-03-03 17:06] LABS: PLATELET COUNT, AUTOMATED 212 10^3/uL (150-450)
[2025-03-03 17:08] LABS: AMPHETAMINES LEVEL URINE POSITIVE (NEGATIVE); CANNABINOIDS URINE POSITIVE (NEGATIVE); METHADONE URINE POSITIVE (NEGATIVE)
[2025-03-03 17:23] LABS: ALT/SGPT 45 U/L (7.0-40); AST/SGOT 56 U/L (<34); CALCIUM LEVEL 8.9 MG/DL (8.5-10.1); CARBON DIOXIDE LEVEL 29 MMOL/L (20-31); CHLORIDE LEVEL 105 MMOL/L (98-107); CREATININE FOR GFR 0.66 MG/DL (0.70-1.30); GLOMERULAR FILTRATION RATE > 90.0 (>60); POTASSIUM SERUM 4.6 MMOL/L (3.5-5.1); SALICYLATE LEVEL < 3.0 MG/DL (<30); SODIUM LEVEL 141 MMOL/L (136-145)
[2025-03-03 17:25] LABS: ETHYL ALCOHOL (ETHANOL) < 0.003 % (0.000-0.010)
[2025-03-03] MEDS ORDERED: MOM 30 ML SUSPENSION UDC PO PRN (18:35)
[2025-03-03] MEDS ORDERED: IBUPROFEN 400 MG TAB PO PRN (18:35)
[2025-03-03] MEDS ORDERED: MAALOX 30 ML SUSP *UDC PO PRN (18:35)
[2025-03-03 20:29] VITALS: BP 146/78; TEMP 97.2; O2SAT 100
[2025-03-04 06:20] VITALS: BP 142/92; TEMP 96.9; O2SAT 100
[2025-03-04] MEDS: METHADONE 10 MG TAB PO ONE (09:50)
[2025-03-04 14:38] VITALS: BP 141/88; TEMP 97.8; O2SAT 100
[2025-03-04] MEDS: QUEtiapine FUMARATE 50MG TAB PO SCH (20:35)
[2025-03-04] MEDS: amLODIPine 5 MG TAB PO SCH (21:00)
[2025-03-05 06:45] VITALS: BP 137/95; TEMP 97.8; O2SAT 99
[2025-03-05 07:54] LABS: FREE T4 0.96 NG/DL (0.89-1.76); THYROXINE (T4) 7.9 UG/DL (4.5-10.9)
[2025-03-05] MEDS: buPROPion **XL** 150 MG TABLET PO SCH (08:14)
[2025-03-05] MEDS ORDERED: METH10CO3 PO (08:28)
[2025-03-05] MEDS ORDERED: HOME MED LIST COMPLETE! XX SCH (08:35)
[2025-03-05] MEDS: METHADONE 10 MG TAB PO SCH (12:20)
[2025-03-05 15:03] VITALS: BP 140/88; TEMP 97.9; O2SAT 98
[2025-03-05] MEDS: OLANZapine 5 MG TAB PO PRN (20:07)
[2025-03-06 06:49] VITALS: BP 134/79; TEMP 97.2; O2SAT 99
[2025-03-06] MEDS: ACETAMINOPHEN 325 MG TAB PO PRN (14:30)
[2025-03-06 16:13] VITALS: BP 127/80; TEMP 97.8; O2SAT 99
[2025-03-07 06:21] VITALS: BP 125/86; TEMP 97; O2SAT 100
[2025-03-07] MEDS: buPROPion **XL** 150 MG TABLET PO SCH (08:57)
[2025-03-07] MEDS: HALOPERIDOL 5 MG TAB PO PRN (10:09)
[2025-03-08 06:27] VITALS: BP 123/83; TEMP 96.5; O2SAT 100
[2025-03-08 16:29] VITALS: BP 128/72; TEMP 97.9; O2SAT 100
[2025-03-09 06:39] VITALS: BP 125/78; TEMP 97; O2SAT 100
[2025-03-09 14:55] VITALS: BP 132/83; TEMP 97.5; O2SAT 98
[2025-03-10 06:32] VITALS: BP 122/76; TEMP 97.2; O2SAT 99
[2025-03-10 14:59] VITALS: BP 138/92; TEMP 98.1; O2SAT 98
[2025-03-10 20:13] VITALS: BP 138/87
[2025-03-10] MEDS ORDERED: BUPR150T12 PO (23:45)
[2025-03-10] MEDS ORDERED: HYDR-3363 PO (23:45)
[2025-03-10] MEDS ORDERED: QUET100T2 PO (23:45)
[2025-03-10] MEDS ORDERED: AMLO1TAB24 PO (23:45)
[2025-03-11 06:26] VITALS: BP 132/98; TEMP 96.6; O2SAT 97
== END 2025-03-11 11:08 | disposition home or self-care (01) | DRG 751 ==
LOC: M ED 15:33 → M ED INP 18:34 → M PSY 20:47
PROVIDERS: ADMIT Student in an Organized Health Care Education/Training Program; ATTEND General Practice
DX: F33.1 Major depressive disorder, recurrent, moderate (principal); F11.20 Opioid dependence, uncomplicated; R45.851 Suicidal ideations; F41.0 Panic disorder [episodic paroxysmal anxiety]; G47.00 Insomnia, unspecified; I10 Essential (primary) hypertension; Z56.0 Unemployment, unspecified; Z88.0 Allergy status to penicillin; Z88.8 Allergy status to other drugs, medicaments and biological substances